=== PATIENT | female | born 1955 | race American Indian/Alaskan Native ===

== ENCOUNTER 2017-01-20 16:42 | Inpatient (IN) | payer MEDICARE ==
[2017-01-20 18:55] VITALS: BMI 27.3
--- NOTE | 2017-01-20 22:40 | CP.PCM.HP ---
History of Present Illness - History of Present Illness History of Present Illness: CC: rehab after seizure, increased spasticity HPI: This is a 61 y/o female with a history of b/l CVAs (2007, 2011) with both L and R sided residual deficits, seizure disorder, HTN, and DM (which appears to be untreated). She is here after she was admitted to [facility] [place] initially for code stroke. She apparently presented with what appears to be partial seizure involving the LUE, L facial droop, as well as acute worsening of her baseline "shaking" Her symptoms resolved with ativan and she was loaded with keppra. Her presentation, per neurology appears to have been deemed an episode of Quinn's Paralysis. Her symptoms eventually improved and she is transferred here for rehab. Patient has no c/c other than the twitching L>R she has MRI w/o contrast shows large R MCA and small L FP infarct, both NOT acute. EEG performed at [facility] was abnormal. ROS: 14 pt. ROS negative other than HPI MHx: CVAs as above, HTN, HLD, DM2 SHx: Rt lumpectomy Allergies: NKDA Medications: as per transfer list Family Hx: Reviewed, no relevant findings Social Hx: Lives at home, no tobacco, no EtOH Surrogate: Monse, daughter Present on Admission - Present on Admission Any Indicators Present on Admission: No Past Patient History - CARDIAC Hx Pacemaker: No - NEUROLOGICAL Hx Paralysis: No (L SIDED WEAKNESS R/T CVA) - HEMATOLOGICAL/ONCOLOGICAL Hx Blood Transfusions: No Hx Blood Transfusion Reaction: No - MUSCULOSKELETAL/RHEUMATOLOGICAL Hx Musculoskeletal Disorders: No - PSYCHIATRIC Hx Physical Abuse: No - SURGICAL HISTORY Hx Surgeries: Yes - ANESTHESIA Hx Anesthesia Reactions: No Hx Malignant Hyperthermia: No Meds Allergies/Adverse Reactions: Allergies Allergy/AdvReac Type Severity Reaction Status Date / Time No Known Allergies Allergy Verified 11/25/11 09:54 Physical Exam - Constitutional Appears: No Acute Distress - Head Exam Head Exam: ATRAUMATIC, NORMOCEPHALIC - Eye Exam Eye Exam: EOMI, Normal appearance - ENT Exam ENT Exam: Mucous Membranes Moist - Neck Exam Neck exam: Positive for: Full Rom - Respiratory Exam Respiratory Exam: Clear to Auscultation Bilateral, NORMAL BREATHING PATTERN - Cardiovascular Exam Cardiovascular Exam: REGULAR RHYTHM, +S1, +S2 - GI/Abdominal Exam GI & Abdominal Exam: Normal Bowel Sounds, Soft - Extremities Exam Extremities exam: Positive for: full ROM Additional comments: LUE and LLE with what appears to be weakness as well as spasticity Assessment & Plan (1) Seizure disorder Assessment and Plan: 61 y/o female with multiple medical conditions including prior CVA and seizure disorder who comes in for rehab. 1) Seizure disorder/spasticity/tremors -Neuro consult (Tyler) -PT/OT consult -Cont Keppra, Lamictal -Ativan PRN for tremors 2) CVA/HLD -Cont ASA, Plavix -Cont statin 3) DM2 -A1C -DM2 diet -SSI -May need to start chcf therapy, either PO or LA/SA regimen 4) DVT PPx -- SQ heparin Status: Acute (2) Weakness Status: Acute (3) HTN (hypertension) Status: Acute (4) HLD (hyperlipidemia) Status: Acute (5) DM2 (diabetes mellitus, type 2) Status: Acute (6) DVT prophylaxis Status: Acute
[2017-01-21] MEDS: Insulin Lispro (humaLOG) 100 Units/ml Inj SC SCH ×4 (06:52→21:00)
[2017-01-21 06:54] LABS: HEMATOCRIT 34.3 % (34.0-47.0); MEAN CELL VOLUME 91.4 fl (81.0-99.0); MEAN CORPUSCULAR HEMOGLOBIN 29.1 pg (27.0-31.0); MEAN CORPUSCULAR HGB CONC 31.8 g/dL (33.0-37.0); RED CELL DISTRIBUTION WIDTH 13.8 % (11.5-14.5)
[2017-01-21 07:04] LABS: BLOOD UREA NITROGEN 12 mg/dl (7-17); CALCIUM 9.3 mg/dL (8.4-10.2); CARBON DIOXIDE 28 mmol/L (22-30); CHLORIDE 105 mmol/L (98-107); GFR AFRICAN-AMERICAN > 60; GLUCOSE,RANDOM 83 mg/dL (65-105); POTASSIUM 4.5 MMOL/L (3.6-5.0); SODIUM 141 mmol/l (132-148)
--- NOTE | 2017-01-21 08:43 | PSY.TMCNF ---
Nursing - Vital Signs Vital Signs (Last 8 hours): Vital Signs 01/21/17 08:09 Pulse Rate 74 Blood Pressure 122/64 - Bladder Management Bladder Pattern: Normal - Bowel Management Bowel Pattern: Normal Case Management - Discharge Plan Discharge Plan: Home with significant other/family Rehabilitation Plan - Treatment Plan Treatment Plan: Physical Therapy, Occupational Therapy, Speech, Dietary, Patient /Family Education - Recommendation Recommendation: Physical Therapy, Occupational Therapy, Speech, Dietary, Patient /Family Education - Discharge Plan Discharge to: Home
[2017-01-21] MEDS ORDERED: LAMOTRIGINE 50 MG PO SCH (09:00)
[2017-01-21] MEDS ORDERED: Patient's Own Med (Levetiracetam [Keppra] 750 MG) PO SCH (09:00)
--- NOTE | 2017-01-21 09:59 | PCM.OPOC ---
Physiatry Overall Plan of Care - Overall Plan of Care Estimated Length of Stay in Weeks: 3 Rehab Impairment: Mobility, Gait, Balance, Coordination Etiologic Diagnosis: Other Rehab/Medical Prognosis: Fair - Anticipated Interventions Physical Therapy:: Yes Occupational Therapy:: Yes Speech Therapy:: Yes Recreational Therapy:: Yes - Therapy Goals Bed Mobility: Independent Ambulation: Independent Functional Positional Changes:: Independent - Functional Outcomes Functional Outcomes: fair - Discharge Plan Identification of Barriers to Discharge: Home Situation Discharge Destination: Home
--- NOTE | 2017-01-21 10:32 | CON ---
PHYSIATRY CONSULTATION HISTORY OF PRESENT ILLNESS: The patient is a friendly 61-year-old black female admitted for acute inpatient rehab program. The patient with a diagnosis of seizure disorder, ICD code of 03.9. Also, history of CVA with residual left-sided weakness, slurred speech, diabetes, hypertension, history of right lumpectomy. SOCIAL HISTORY: History of smoking 1 pack per day. No other acute complaints at present. MEDICATIONS: As per medical physician. Vitals are stable. Seizure precautions. Poor functional status. The patient lives with the family, 14 steps to enter. REVIEW OF SYSTEMS: The patient with generalized weakness, left-sided weakness. PHYSICAL EXAMINATION: VITAL SIGNS: Vitals are stable. NECK: Supple. CHEST: Symmetrical. HEART: Sounds S1 and S2. ABDOMEN: Abdomen area is benign. EXTREMITIES: No clubbing, cyanosis or edema. NEUROLOGICAL: The patient is alert, able to follow commands. Cranial nerves II through XII intact. Motor both upper and both lower extremities to a normal range of motion is functional. Muscle strength is good. Left upper and left lower extremity to a normal range of motion is functional. Muscle strength is fair. Sensations to pinprick, light touch intact. Deep tendon reflexes 2+ bilaterally. Other systems are negative. IMPRESSION: For the patient is seizure disorder, ICD code of 03.9, history of cerebrovascular accident, left-sided weakness, slurred speech, seizure disorder, hypertension, diabetes, right lumpectomy. Precautions: Seizure precautions. Estimated length of stay for this patient is 2 to 3 weeks and expected discharge plan is go back to the home with supportive services. Treatment goals for the patient to be independent bed mobility, independent to supervision functional positional changes, independent to supervision for simple transfers, supervision and contact guard to complex transfers, independent to supervision for ambulation with assistive devices, supervision to contact guard for elevations. Terry Britton MD
--- NOTE | 2017-01-21 12:03 | CP.PCM.PN ---
Subjective - Date & Time of Evaluation Date of Evaluation: 01/21/17 Time of Evaluation: 14:00 - Subjective Subjective: Patient seen and examined bedside. Complains of spasticity and pain to LUE .he, modynamically stable, afebrile With weakness to LUE Objective - Vital Signs/Intake and Output Vital Signs (last 24 hours): Temp Pulse Resp BP Pulse Ox 74 20 122/64 100 01/21/17 08:09 01/20/17 22:48 01/21/17 08:09 01/20/17 22:48 - Medications Medications: Current Medications Acetaminophen (Tylenol 325mg Tab) 650 mg PO Q6 PRN PRN Reason: Pain, Mild (1-3) Aspirin (Ecotrin) 81 mg PO DAILY [facility] Last Admin: 01/21/17 08:08 Dose: 81 mg Atorvastatin Calcium (Lipitor) 40 mg PO HS [facility] Last Admin: 01/20/17 23:02 Dose: 40 mg Clopidogrel Bisulfate (Plavix) 75 mg PO DAILY [facility] Last Admin: 01/21/17 08:08 Dose: 75 mg Heparin Sodium (Porcine) (Heparin) 5,000 units SC Q8 [facility] PRN Reason: Protocol Last Admin: 01/21/17 06:27 Dose: 5,000 units Insulin Human Lispro (Humalog) 0 units SC ACHS [facility] PRN Reason: Protocol Last Admin: 01/21/17 06:52 Dose: Not Given Lamotrigine (Lamictal) 50 mg PO BID [facility] Last Admin: 01/21/17 08:08 Dose: 50 mg Levetiracetam (Keppra) 750 mg PO BID [facility] Last Admin: 01/21/17 08:08 Dose: 750 mg Lisinopril (Zestril) 5 mg PO DAILY [facility] Last Admin: 01/21/17 08:09 Dose: 5 mg Lorazepam (Ativan) 1 mg PO Q6H PRN PRN Reason: prn shaking/anxiety Last Admin: 01/20/17 23:02 Dose: 1 mg - Labs Labs: 01/21/17 06:45 01/21/17 06:45 - Constitutional Appears: Non-toxic, No Acute Distress - Head Exam Head Exam: ATRAUMATIC - Eye Exam Eye Exam: EOMI, PERRL Pupil Exam: NORMAL ACCOMODATION - ENT Exam ENT Exam: Mucous Membranes Moist, Normal Exam - Neck Exam Neck Exam: Full ROM, Normal Inspection - Respiratory Exam Respiratory Exam: Clear to Ausculation Bilateral, NORMAL BREATHING PATTERN. absent: Rales, Rhonchi, Wheezes, Respiratory Distress - Cardiovascular Exam Cardiovascular Exam: REGULAR RHYTHM, RRR, +S1, +S2. absent: JVD - GI/Abdominal Exam GI & Abdominal Exam: Soft, Normal Bowel Sounds, Rebound. absent: Distended, Guarding, Tenderness - Rectal Exam Rectal Exam: Deferred - Extremities Exam Extremities Exam: Normal Capillary Refill, Normal Inspection. absent: Calf Tenderness, Pedal Edema - Back Exam Back Exam: NORMAL INSPECTION - Neurological Exam Neurological Exam: Alert, Awake, Oriented x3 Additional comments: left side weakness left side spasticity - Psychiatric Exam Psychiatric exam: Normal Affect - Skin Skin Exam: Dry, Intact, Normal Color, Warm Assessment and Plan - Assessment and Plan (Free Text) Assessment: 61 y/o female with multiple medical conditions including prior CVA and seizure disorder came in for rehab.With weakness and spasticity to left side of her body . 1. Unstable gait with prior CVA and left side weakness admitted to acute rehab physiatry consulted continue PT/OT 2. Seizure disorder/spasticity/tremors Neuro consult with Dr. Olmos continue PT/OT consult Cont Keppra, Lamictal Ativan PRN for tremors 3. CVA/HLD Cont ASA, Plavix Cont statin 4. Suspected DM2 HgbA1c 5.5 DM2 diet SSI no PO meds for now 5.Anemia most likely chronic no intervention for now 6.DVT PPx SQ heparin
--- NOTE | 2017-01-21 22:51 | CP.PCM.CON ---
History of Present Illness - History of Present Illness History of Present Illness: This is a 61 y/o female with a history of b/l CVAs (2007, 2011) with both L and R sided residual deficits, seizure disorder, HTN, and DM (which appears to be untreated). She is here after she was admitted to [facility] [place] initially for code stroke. She apparently presented with what appears to be partial seizure involving the LUE, L facial droop, as well as acute worsening of her baseline "shaking" Her symptoms resolved with ativan and she was loaded with keppra. Her presentation, per neurology appears to have been deemed an episode of Quinn's Paralysis. Her symptoms eventually improved and she is transferred here for rehab. Patient has no c/c other than the twitching L>R she has MRI w/o contrast shows large R MCA and small L FP infarct, both NOT acute. EEG performed at [facility] [place] was abnormal. ROS: 14 pt. ROS negative other than HPI MHx: CVAs as above, HTN, HLD, DM2 SHx: Rt lumpectomy Allergies: NKDA Medications: as per transfer list Family Hx: Reviewed, no relevant findings Social Hx: Lives at home, no tobacco, no EtOH Surrogate: Monse, daughter Present on Admission - Present on Admission Any Indicators Present on Admission: No Past Patient History - CARDIAC Hx Pacemaker: No - NEUROLOGICAL Hx Paralysis: No (L SIDED WEAKNESS R/T CVA) - HEMATOLOGICAL/ONCOLOGICAL Hx Blood Transfusions: No Hx Blood Transfusion Reaction: No - MUSCULOSKELETAL/RHEUMATOLOGICAL Hx Musculoskeletal Disorders: No - PSYCHIATRIC Hx Physical Abuse: No - SURGICAL HISTORY Hx Surgeries: Yes - ANESTHESIA Hx Anesthesia Reactions: No Hx Malignant Hyperthermia: No Meds Allergies/Adverse Reactions: Allergies Allergy/AdvReac Type Severity Reaction Status Date / Time No Known Allergies Allergy Verified 11/25/11 09:54 Physical Exam - Constitutional Appears: No Acute Distress - Head Exam Head Exam: ATRAUMATIC, NORMOCEPHALIC - Eye Exam Eye Exam: EOMI, Normal appearance - ENT Exam ENT Exam: Mucous Membranes Moist - Neck Exam Neck exam: Positive for: Full Rom - Respiratory Exam Respiratory Exam: Clear to Auscultation Bilateral, NORMAL BREATHING PATTERN - Cardiovascular Exam Cardiovascular Exam: REGULAR RHYTHM, +S1, +S2 - GI/Abdominal Exam GI & Abdominal Exam: Normal Bowel Sounds, Soft - Extremities Exam Extremities exam: Positive for: full ROM Additional comments: LUE and LLE with what appears to be weakness as well as spasticity Assessment & Plan (1) Seizure disorder Assessment and Plan: 61 y/o female with multiple medical conditions including prior CVA and seizure disorder who comes in for rehab. 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 Complains of spasticity and pain to LUE .hemo dynamically stable, afebrile With weakness to LUE (2) Weakness Status: Acute (3) HTN (hypertension) Status: Acute (4) HLD (hyperlipidemia) Status: Acute (5) DM2 (diabetes mellitus, type 2) Status: Acute (6) DVT prophylaxis Status: Acute Estimated Length of Stay in Weeks: 3 Rehab Impairment: Mobility, Gait, Balance, Coordination Etiologic Diagnosis: Other Rehab/Medical Prognosis: Fair Past Patient History - Past Medical History & Family History Past Medical History?: Yes - Past Social History Smoking Status: Heavy Smoker > 10 Cigarettes Daily - CARDIAC Hx Hypercholesterolemia: Yes Hx Hypertension: Yes - PULMONARY Hx Respiratory Disorders: No - NEUROLOGICAL HX Cerebrovascular Accident: Yes (2007 and 2011) - HEENT Hx HEENT Problems: No - RENAL Hx Chronic Kidney Disease: No - ENDOCRINE/METABOLIC Hx Diabetes Mellitus Type 2: Yes - HEMATOLOGICAL/ONCOLOGICAL Hx Blood Transfusions: No Hx Blood Transfusion Reaction: No - INTEGUMENTARY Hx Dermatological Problems: No - MUSCULOSKELETAL/RHEUMATOLOGICAL Hx Musculoskeletal Disorders: No - GASTROINTESTINAL Hx Gastrointestinal Disorders: No - GENITOURINARY/GYNECOLOGICAL Hx Genitourinary Disorders: No - PSYCHIATRIC Hx Physical Abuse: No - SURGICAL HISTORY Hx Surgeries: Yes Other/Comment: HX. Right Lumpectomy - ANESTHESIA Hx Anesthesia: No Hx Anesthesia Reactions: No Hx Malignant Hyperthermia: No Meds Allergies/Adverse Reactions: Allergies Allergy/AdvReac Type Severity Reaction Status Date / Time No Known Allergies Allergy Verified 01/21/17 01:15 - Medications Medications: Current Medications Acetaminophen (Tylenol 325mg Tab) 650 mg PO Q6 PRN PRN Reason: Pain, Mild (1-3) Last Admin: 11/22/17 16:30 Dose: 650 mg Aspirin (Ecotrin) 81 mg PO DAILY [facility] Last Admin: 01/21/17 08:08 Dose: 81 mg Atorvastatin Calcium (Lipitor) 40 mg PO HS [facility] Last Admin: 01/21/17 21:16 Dose: 40 mg Clopidogrel Bisulfate (Plavix) 75 mg PO DAILY [facility] Last Admin: 01/21/17 08:08 Dose: 75 mg Donepezil HCl (Aricept) 10 mg PO HS [facility] Last Admin: 01/21/17 21:16 Dose: 10 mg Heparin Sodium (Porcine) (Heparin) 5,000 units SC Q8 [facility] PRN Reason: Protocol Last Admin: 01/21/17 21:17 Dose: 5,000 units Insulin Human Lispro (Humalog) 0 units SC ACHS [facility] PRN Reason: Protocol Last Admin: 01/21/17 21:00 Dose: Not Given Lamotrigine (Lamictal) 50 mg PO BID [facility] Last Admin: 01/21/17 17:47 Dose: 50 mg Levetiracetam (Keppra) 750 mg PO BID [facility] Last Admin: 01/21/17 17:47 Dose: 750 mg Lisinopril (Zestril) 5 mg PO DAILY [facility] Last Admin: 01/21/17 08:09 Dose: 5 mg Lorazepam (Ativan) 1 mg PO Q6H PRN PRN Reason: prn shaking/anxiety Last Admin: 01/21/17 13:29 Dose: 1 mg Pantoprazole Sodium (Protonix Ec Tab) 40 mg PO DAILY [facility] Physical Exam - Neurological Exam Additional comments: Patient is lying down active cooperative with me and her nurse. Mental status: Awake alert, oriented X 3 Normal memory dysarthric and receiving therapy for her condition. Motor: Right side has a normal Tone, left side facial asymmetry with a paralysis of the left side of the face, Power is reduced on the Left side scoring 3 to 4 /5 Left hand contracted She looks developing a condition of Spastic hand with tremors of the fingers of left hand DTR 0/4 Toes down going. Cerebellar: Normal FNT on the Right side, abnormal FNT on the Left side Stature and gait: not tested, reported to walking with help. Results - Vital Signs Recent Vital Signs: Last Vital Signs Temp 97.9 F 01/21/17 19:48 Pulse 75 01/21/17 19:48 Resp 20 01/21/17 19:48 BP 123/76 01/21/17 19:48 Pulse Ox 96 01/21/17 19:48 - Labs Result Diagrams: 01/21/17 06:45 01/21/17 06:45 Labs: Laboratory Results - last 24 hr 01/21/17 01/21/17 01/21/17 06:31 06:45 06:45 WBC 7.0 RBC 3.75 L Hgb 10.9 L Hct 34.3 MCV 91.4 MCH 29.1 MCHC 31.8 L RDW 13.8 Plt Count 165 Sodium Potassium Chloride Carbon Dioxide Anion Gap BUN Creatinine Est GFR ( Amer) Est GFR (Non-Af Amer) POC Glucose (mg/dL) 82 Random Glucose Hemoglobin A1c 5.5 Calcium 01/21/17 01/21/17 01/21/17 06:45 11:41 16:02 WBC RBC Hgb Hct MCV MCH MCHC RDW Plt Count Sodium 141 Potassium 4.5 Chloride 105 Carbon Dioxide 28 Anion Gap 12 BUN 12 Creatinine 1.1 Est GFR ( Amer) > 60 Est GFR (Non-Af Amer) 51 POC Glucose (mg/dL) 98 96 Random Glucose 83 Hemoglobin A1c Calcium 9.3 01/21/17 20:43 WBC RBC Hgb Hct MCV MCH MCHC RDW Plt Count Sodium Potassium Chloride Carbon Dioxide Anion Gap BUN Creatinine Est GFR ( Amer) Est GFR (Non-Af Amer) POC Glucose (mg/dL) 131 H Random Glucose Hemoglobin A1c Calcium Assessment & Plan (1) DM2 (diabetes mellitus, type 2) Status: Acute (2) DVT prophylaxis Status: Acute (3) HLD (hyperlipidemia) Status: Acute (4) HTN (hypertension) Status: Acute (5) Seizure disorder Status: Acute (6) Weakness Assessment and Plan: Left Sided Weakness. Status: Acute (7) Dystonia Assessment and Plan: R/O Dystonia and tremors of the left hand due to Rigidity and spasm of the left hand, on and off, producing milking like movement. This might be related to her CVA, or due to seizures. Start Benztropine Status: Acute
[2017-01-22] MEDS ORDERED: Oxycodone/Acetaminophen 5/325 mg Tab PO STA (02:05)
[2017-01-22] MEDS: Insulin Lispro (humaLOG) 100 Units/ml Inj SC SCH ×4 (06:30→21:00)
[2017-01-22] MEDS: Pantoprazole 40 mg EC Tab PO SCH (09:08)
[2017-01-22 18:04] LABS: FOLATE 17.1 ng/mL
--- NOTE | 2017-01-22 22:40 | CP.PCM.PN ---
Subjective - Date & Time of Evaluation Date of Evaluation: 01/22/17 Time of Evaluation: 21:20 - Subjective Subjective: Right hand is dystonic after starting the Benztropine 0.5 mg Q 12hrs. Complains of mild Dystonia in the left hand on and off given Ativan PRN pain due to hand spasm. Low Vit D give Vit D replacement and Oscal Continue Rehab as it is helping her significantly. she is satisfied with her progress. Botox injections also may help her Dx Dystonia Objective - Vital Signs/Intake and Output Vital Signs (last 24 hours): Temp Pulse Resp BP Pulse Ox 97.2 F L 79 20 126/72 97 01/22/17 19:15 01/22/17 19:15 01/22/17 19:15 01/22/17 19:15 01/22/17 19:15 - Medications Medications: Current Medications Acetaminophen (Tylenol 325mg Tab) 650 mg PO Q6 PRN PRN Reason: Pain, Mild (1-3) Last Admin: 01/21/17 16:30 Dose: 650 mg Aspirin (Ecotrin) 81 mg PO DAILY [facility] Last Admin: 01/22/17 09:07 Dose: 81 mg Atorvastatin Calcium (Lipitor) 40 mg PO HS [facility] Last Admin: 01/22/17 21:30 Dose: 40 mg Benztropine Mesylate (Cogentin) 0.5 mg PO BID [facility] Last Admin: 01/22/17 17:15 Dose: 0.5 mg Clopidogrel Bisulfate (Plavix) 75 mg PO DAILY [facility] Last Admin: 01/22/17 09:07 Dose: 75 mg Donepezil HCl (Aricept) 10 mg PO HS [facility] Last Admin: 01/22/17 21:31 Dose: 10 mg Heparin Sodium (Porcine) (Heparin) 5,000 units SC Q8 [facility] PRN Reason: Protocol Last Admin: 01/22/17 21:31 Dose: 5,000 units Insulin Human Lispro (Humalog) 0 units SC ACHS [facility] PRN Reason: Protocol Last Admin: 01/22/17 21:00 Dose: Not Given Lamotrigine (Lamictal) 50 mg PO BID [facility] Last Admin: 01/22/17 17:15 Dose: 50 mg Levetiracetam (Keppra) 750 mg PO BID [facility] Last Admin: 01/22/17 17:16 Dose: 750 mg Lisinopril (Zestril) 5 mg PO DAILY [facility] Last Admin: 01/22/17 09:07 Dose: 5 mg Lorazepam (Ativan) 1 mg PO Q6H PRN PRN Reason: prn shaking/anxiety Last Admin: 01/22/17 20:10 Dose: 1 mg Pantoprazole Sodium (Protonix Ec Tab) 40 mg PO DAILY [facility] Last Admin: 01/22/17 09:08 Dose: 40 mg - Labs Labs: 01/21/17 06:45 01/21/17 06:45 Assessment and Plan (1) DM2 (diabetes mellitus, type 2) Status: Acute (2) DVT prophylaxis Status: Acute (3) HLD (hyperlipidemia) Status: Acute (4) HTN (hypertension) Status: Acute (5) Seizure disorder Status: Acute (6) Weakness Status: Acute (7) Dystonia Status: Acute
[2017-01-22] MEDS: Ergocalciferol 50,000 Intl Units Cap PO SCH (23:09)
[2017-01-23] MEDS: Insulin Lispro (humaLOG) 100 Units/ml Inj SC SCH ×4 (06:30→21:20)
[2017-01-23] MEDS: Pantoprazole 40 mg EC Tab PO SCH (08:18)
--- NOTE | 2017-01-23 09:53 | CP.PCM.PN ---
Subjective - Date & Time of Evaluation Date of Evaluation: 01/23/17 Time of Evaluation: 09:48 - Subjective Subjective: patient seen and examined at bedside for seizures and dystonia? Of right hand. She is doing well and participating with physical therapy and states she feels improvement.She is hemodynamically stable and in no acute distress. Blood pressure mildly low, will place holding parameters on medications. Objective - Vital Signs/Intake and Output Vital Signs (last 24 hours): Temp Pulse Resp BP Pulse Ox 98 F 68 20 90/60 L 98 01/23/17 08:29 01/23/17 08:29 01/23/17 08:29 01/23/17 08:29 01/23/17 08:29 Physical exam: Constitutional- cooperative, awake, alert. Head- NCAT, PERRL Eye- PERRL, normal accommodation ENT- normal exam, MMM. Neck- normal inspection, supple, no JVD Respiratory- CTAB, no wheezes rales rhonchi Cardiovascular- RRR, +S1, +S2 no MRG GI/Abdominal- normal bowel sounds, soft, no mass, no hsm Skin- warm, dry Extremities Exam- normal capillary refill, normal inspection, no tremors Neurological Exam- alert, stable gait Psych- normal mood, normal affect - Medications Medications: Current Medications Acetaminophen (Tylenol 325mg Tab) 650 mg PO Q6 PRN PRN Reason: Pain, Mild (1-3) Last Admin: 01/21/17 16:30 Dose: 650 mg Aspirin (Ecotrin) 81 mg PO DAILY [facility] Last Admin: 01/23/17 08:19 Dose: 81 mg Atorvastatin Calcium (Lipitor) 40 mg PO [facility] Last Admin: 01/22/17 21:30 Dose: 40 mg Benztropine Mesylate (Cogentin) 0.5 mg PO BID [facility] Last Admin: 01/22/17 17:15 Dose: 0.5 mg [facility] [place] Last Admin: 01/23/17 08:18 Dose: 500 mg Clopidogrel Bisulfate (Plavix) 75 mg PO DAILY [facility] Last Admin: 01/23/17 08:19 Dose: 75 mg Donepezil HCl (Aricept) 10 mg PO HS [facility] Last Admin: 01/22/17 21:31 Dose: 10 mg Ergocalciferol (Drisdol 50,000 Intl Units Cap) 1 cap PO Q7D [facility] Last Admin: 01/22/17 23:09 Dose: 1 cap Heparin Sodium (Porcine) (Heparin) 5,000 units SC Q8 [facility] PRN Reason: Protocol Last Admin: 01/23/17 06:14 Dose: 5,000 units Hydroxyzine HCl (Atarax) 10 mg PO HS PRN PRN Reason: insomnia / severe muscle spasm Insulin Human Lispro (Humalog) 0 units SC ACHS [facility] PRN Reason: Protocol Last Admin: 01/23/17 06:30 Dose: Not Given Lamotrigine (Lamictal) 50 mg PO BID [facility] Last Admin: 01/23/17 08:19 Dose: 50 mg Levetiracetam (Keppra) 750 mg PO BID [facility] Last Admin: 01/23/17 08:19 Dose: 750 mg Lisinopril (Zestril) 5 mg PO DAILY [facility] Last Admin: 01/23/17 08:26 Dose: Not Given Lorazepam (Ativan) 1 mg PO Q6H PRN PRN Reason: prn shaking/anxiety Last Admin: 01/22/17 20:10 Dose: 1 mg Pantoprazole Sodium (Protonix Ec Tab) 40 mg PO DAILY [facility] Last Admin: 01/23/17 08:18 Dose: 40 mg - Labs Labs: 01/21/17 06:45 01/21/17 06:45 Assessment and Plan - Assessment and Plan (Free Text) Plan: 61 y/o female with a history of b/l CVAs (2007, 2011) with both L and R sided residual deficits, seizure disorder, HTN, and DM (untreated). [place] [facility]. She apparently presented with what appears to be partial seizure involving the LUE, L facial droop, as well as acute worsening of her baseline "shaking" Her symptoms resolved with ativan and she was loaded with keppra. Her presentation, per neurology this was an episode of Quinn's Paralysis. Her symptoms eventually improved and she is transferred here for rehab. 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 Today on examination, patient had no tremors nor dystonia. We will continue current medications and monitor for symptoms. - continue PT/OT - Neuro Consult: Dr. Olmos - Physiatry Consult - Continue Keppra, Lamictal - Ativan PRN for tremors - cont Atarax per neuro - cont Aricept per neuro - cont Benztropine per neuro Hx CVA HLD - continue ASA, plavix, and statin DMII, uncontrolled/ hyperglycemia - HgbA1c 5.5 - mod carbohydrate heart healthy diet - SSI - no PO meds initiated this admission Anemia - likely chronic - stable Vitamin D deficiency - replete per neuro, cont Ergocalciferol GERD? - protonix 40 mg PO daily DVT ppx heparin
--- NOTE | 2017-01-23 22:28 | CP.PCM.PN ---
Subjective - Date & Time of Evaluation Date of Evaluation: 01/23/17 Time of Evaluation: 21:20 - Subjective Subjective: Patient has no seizures currently and her hand Dystonia has disappeared on Benztropine. Both hands are acting normally without dystonia. Doubt a diagnosis of Seizures. Objective - Vital Signs/Intake and Output Vital Signs (last 24 hours): Temp Pulse Resp BP Pulse Ox 98 F 68 20 100/70 98 01/23/17 08:29 01/23/17 10:11 01/23/17 08:29 01/23/17 10:11 01/23/17 10:11 - Medications Medications: Current Medications Acetaminophen (Tylenol 325mg Tab) 650 mg PO Q6 PRN PRN Reason: Pain scale 1-10. Aspirin (Ecotrin) 81 mg PO DAILY [facility] Last Admin: 01/23/17 08:19 Dose: 81 mg Atorvastatin Calcium (Lipitor) 40 mg PO HS [facility] Last Admin: 01/23/17 21:14 Dose: 40 mg Benztropine Mesylate (Cogentin) 0.5 mg PO BID [facility] Last Admin: 01/23/17 17:56 Dose: 0.5 mg Calcium Carbonate (Oscal) 500 mg PO BIDWM [facility] Last Admin: 01/23/17 18:00 Dose: 500 mg Clopidogrel Bisulfate (Plavix) 75 mg PO DAILY [facility] Last Admin: 01/23/17 08:19 Dose: 75 mg Donepezil HCl (Aricept) 10 mg PO HS [facility] Last Admin: 01/23/17 21:14 Dose: 10 mg Ergocalciferol (Drisdol 50,000 Intl Units Cap) 1 cap PO Q7D [facility] Last Admin: 01/22/17 23:09 Dose: 1 cap Heparin Sodium (Porcine) (Heparin) 5,000 units SC Q8 [facility] PRN Reason: Protocol Last Admin: 01/23/17 21:14 Dose: 5,000 units Hydroxyzine HCl (Atarax) 10 mg PO HS PRN PRN Reason: insomnia / severe muscle spasm Insulin Human Lispro (Humalog) 0 units SC ACHS [facility] PRN Reason: Protocol Last Admin: 01/23/17 21:20 Dose: Not Given Lamotrigine (Lamictal) 50 mg PO BID [facility] Last Admin: 01/23/17 18:00 Dose: 50 mg Levetiracetam (Keppra) 750 mg PO BID [facility] Last Admin: 01/23/17 18:00 Dose: 750 mg Lisinopril (Zestril) 5 mg PO DAILY [facility] Lorazepam (Ativan) 1 mg PO Q6H PRN PRN Reason: prn shaking/anxiety Last Admin: 01/22/17 20:10 Dose: 1 mg Pantoprazole Sodium (Protonix Ec Tab) 40 mg PO DAILY [facility] Last Admin: 01/23/17 08:18 Dose: 40 mg - Labs Labs: 01/21/17 06:45 01/21/17 06:45 Assessment and Plan (1) DM2 (diabetes mellitus, type 2) Status: Acute (2) DVT prophylaxis Status: Acute (3) HLD (hyperlipidemia) Status: Acute (4) HTN (hypertension) Status: Acute (5) Seizure disorder Status: Acute (6) Weakness Status: Acute (7) Dystonia Status: Acute
[2017-01-24] MEDS: Insulin Lispro (humaLOG) 100 Units/ml Inj SC SCH ×4 (06:35→21:00)
[2017-01-24] MEDS: Pantoprazole 40 mg EC Tab PO SCH (08:35)
--- NOTE | 2017-01-24 12:36 | CP.PCM.PN ---
Subjective - Date & Time of Evaluation Date of Evaluation: 01/23/17 Time of Evaluation: 18:30 - Subjective Subjective: no acute complaints at present Objective - Vital Signs/Intake and Output Vital Signs (last 24 hours): Temp Pulse Resp BP Pulse Ox 98.1 F 62 20 129/69 97 01/24/17 08:01 01/24/17 08:35 01/24/17 08:01 01/24/17 08:35 01/24/17 08:22 - Medications Medications: Current Medications Acetaminophen (Tylenol 325mg Tab) 650 mg PO Q6 PRN PRN Reason: Pain scale 1-10. Aspirin (Ecotrin) 81 mg PO DAILY [facility] Last Admin: 01/24/17 08:35 Dose: 81 mg Atorvastatin Calcium (Lipitor) 40 mg PO HS [facility] Last Admin: 01/23/17 21:14 Dose: 40 mg Benztropine Mesylate (Cogentin) 0.5 mg PO BID [facility] Last Admin: 01/23/17 17:56 Dose: 0.5 mg Calcium Carbonate (Oscal) 500 mg PO BIDWM [facility] Last Admin: 01/24/17 08:36 Dose: 500 mg Clopidogrel Bisulfate (Plavix) 75 mg PO DAILY [facility] Last Admin: 01/24/17 08:34 Dose: 75 mg Donepezil HCl (Aricept) 10 mg PO HS [facility] Last Admin: 01/23/17 21:14 Dose: 10 mg Ergocalciferol (Drisdol 50,000 Intl Units Cap) 1 cap PO Q7D [facility] Last Admin: 01/22/17 23:09 Dose: 1 cap Heparin Sodium (Porcine) (Heparin) 5,000 units SC Q8 [facility] PRN Reason: Protocol Last Admin: 01/24/17 06:34 Dose: 5,000 units Hydroxyzine HCl (Atarax) 10 mg PO HS PRN PRN Reason: insomnia / severe muscle spasm Insulin Human Lispro (Humalog) 0 units SC ACHS [facility] PRN Reason: Protocol Last Admin: 01/24/17 06:35 Dose: Not Given Lamotrigine (Lamictal) 50 mg PO BID [facility] Last Admin: 01/24/17 08:35 Dose: 50 mg Levetiracetam (Keppra) 750 mg PO BID [facility] Last Admin: 01/24/17 08:34 Dose: 750 mg Lisinopril (Zestril) 5 mg PO DAILY [facility] Last Admin: 01/24/17 08:35 Dose: 5 mg Lorazepam (Ativan) 1 mg PO Q6H PRN PRN Reason: prn shaking/anxiety Last Admin: 01/22/17 20:10 Dose: 1 mg Pantoprazole Sodium (Protonix Ec Tab) 40 mg PO DAILY [facility] Last Admin: 01/24/17 08:35 Dose: 40 mg - Labs Labs: 01/21/17 06:45 01/21/17 06:45 - Head Exam Head Exam: ATRAUMATIC, NORMAL INSPECTION, NORMOCEPHALIC - Eye Exam Eye Exam: EOMI, Normal appearance Pupil Exam: NORMAL ACCOMODATION, PERRL - ENT Exam ENT Exam: Mucous Membranes Moist, Normal Exam - Respiratory Exam Respiratory Exam: Clear to Ausculation Bilateral, NORMAL BREATHING PATTERN - Cardiovascular Exam Cardiovascular Exam: REGULAR RHYTHM - GI/Abdominal Exam GI & Abdominal Exam: Soft, Normal Bowel Sounds - Exam External exam: NORMAL EXTERNAL EXAM - Extremities Exam Extremities Exam: Full ROM, Normal Capillary Refill, Normal Inspection - Back Exam Back Exam: NORMAL INSPECTION - Neurological Exam Neurological Exam: Alert, Awake Neuro motor strength exam: Left Upper Extremity: 3, Right Upper Extremity: 3, Left Lower Extremity: 3, Right Lower Extremity: 3 - Psychiatric Exam Psychiatric exam: Normal Affect - Skin Skin Exam: Dry, Normal Color Assessment and Plan (1) DM2 (diabetes mellitus, type 2) Status: Acute (2) DVT prophylaxis Status: Acute (3) Dystonia Status: Acute (4) HLD (hyperlipidemia) Status: Acute (5) HTN (hypertension) Status: Acute (6) Weakness Status: Acute (7) Seizure disorder Assessment & Plan: plan for physical, occupational, rec therapy and speech therapy Monitor skin , bowels or seizure, continue acute rehab. Status: Acute
[2017-01-24 16:05] LABS: VITAMIN B6 3.1 ng/mL (2.1-21.7)
--- NOTE | 2017-01-24 20:19 | CP.PCM.PN ---
Subjective - Date & Time of Evaluation Date of Evaluation: 01/24/17 Time of Evaluation: 20:10 - Subjective Subjective: No Dystonia seen in the hands or fingers after Cogentin was started. Objective - Vital Signs/Intake and Output Vital Signs (last 24 hours): Temp Pulse Resp BP Pulse Ox 98.4 F 74 20 131/70 97 01/24/17 19:53 01/24/17 19:53 01/24/17 19:53 01/24/17 19:53 01/24/17 19:53 - Medications Medications: Current Medications Acetaminophen (Tylenol 325mg Tab) 650 mg PO Q6 PRN PRN Reason: Pain scale 1-10. Aspirin (Ecotrin) 81 mg PO DAILY [facility] Last Admin: 01/24/17 08:35 Dose: 81 mg Atorvastatin Calcium (Lipitor) 40 mg PO HS [facility] Last Admin: 01/23/17 21:14 Dose: 40 mg Benztropine Mesylate (Cogentin) 0.5 mg PO BID [facility] Last Admin: 01/24/17 16:49 Dose: 0.5 mg Calcium Carbonate (Oscal) 500 mg PO BIDWM [facility] Last Admin: 01/24/17 16:50 Dose: 500 mg Clopidogrel Bisulfate (Plavix) 75 mg PO DAILY [facility] Last Admin: 01/24/17 08:34 Dose: 75 mg Donepezil HCl (Aricept) 10 mg PO HS [facility] Last Admin: 01/23/17 21:14 Dose: 10 mg Ergocalciferol (Drisdol 50,000 Intl Units Cap) 1 cap PO Q7D [facility] Last Admin: 01/22/17 23:09 Dose: 1 cap Heparin Sodium (Porcine) (Heparin) 5,000 units SC Q8 [facility] PRN Reason: Protocol Last Admin: 01/24/17 13:26 Dose: 5,000 units Hydroxyzine HCl (Atarax) 10 mg PO HS PRN PRN Reason: insomnia / severe muscle spasm Insulin Human Lispro (Humalog) 0 units SC ACHS [facility] PRN Reason: Protocol Last Admin: 01/24/17 16:50 Dose: 2 units Lamotrigine (Lamictal) 50 mg PO BID [facility] Last Admin: 01/24/17 16:51 Dose: 50 mg Levetiracetam (Keppra) 750 mg PO BID [facility] Last Admin: 01/24/17 16:49 Dose: 750 mg Lisinopril (Zestril) 5 mg PO DAILY [facility] Last Admin: 01/24/17 08:35 Dose: 5 mg Lorazepam (Ativan) 1 mg PO Q6H PRN PRN Reason: prn shaking/anxiety Last Admin: 01/22/17 20:10 Dose: 1 mg Pantoprazole Sodium (Protonix Ec Tab) 40 mg PO DAILY [facility] Last Admin: 01/24/17 08:35 Dose: 40 mg - Labs Labs: 01/21/17 06:45 01/21/17 06:45 Assessment and Plan (1) DM2 (diabetes mellitus, type 2) Status: Acute (2) DVT prophylaxis Status: Acute (3) HLD (hyperlipidemia) Status: Acute (4) HTN (hypertension) Status: Acute (5) Seizure disorder Status: Acute (6) Weakness Status: Acute (7) Dystonia Status: Acute
[2017-01-25] MEDS: Insulin Lispro (humaLOG) 100 Units/ml Inj SC SCH ×4 (07:00→21:00)
[2017-01-25] MEDS: Pantoprazole 40 mg EC Tab PO SCH (09:09)
--- NOTE | 2017-01-25 23:47 | CP.PCM.PN ---
Subjective - Date & Time of Evaluation Date of Evaluation: 01/25/17 Time of Evaluation: 21:05 - Subjective Subjective: Patient is doing better, no spasm in her hands. Sleeping well. Hands dystonia is treated. No seizures. Objective - Vital Signs/Intake and Output Vital Signs (last 24 hours): Temp Pulse Resp BP Pulse Ox 98.4 F 72 20 120/62 98 01/25/17 20:04 01/25/17 20:04 01/25/17 20:04 01/25/17 20:04 01/25/17 20:04 - Medications Medications: Current Medications Acetaminophen (Tylenol 325mg Tab) 650 mg PO Q6 PRN PRN Reason: Pain scale 1-10. Aspirin (Ecotrin) 81 mg PO DAILY [facility] Last Admin: 01/25/17 09:10 Dose: 81 mg Atorvastatin Calcium (Lipitor) 40 mg PO HS [facility] Last Admin: 01/25/17 21:11 Dose: 40 mg Benztropine Mesylate (Cogentin) 0.5 mg PO BID [facility] Last Admin: 01/25/17 16:31 Dose: 0.5 mg Calcium Carbonate (Oscal) 500 mg PO BIDWM [facility] Last Admin: 01/25/17 16:31 Dose: 500 mg Clopidogrel Bisulfate (Plavix) 75 mg PO DAILY [facility] Last Admin: 01/25/17 09:09 Dose: 75 mg Donepezil HCl (Aricept) 10 mg PO HS [facility] Last Admin: 01/25/17 21:11 Dose: 10 mg Ergocalciferol (Drisdol 50,000 Intl Units Cap) 1 cap PO Q7D [facility] Last Admin: 01/22/17 23:09 Dose: 1 cap Heparin Sodium (Porcine) (Heparin) 5,000 units SC Q8 [facility] PRN Reason: Protocol Last Admin: 01/25/17 21:11 Dose: 5,000 units Hydroxyzine HCl (Atarax) 10 mg PO HS PRN PRN Reason: insomnia / severe muscle spasm Last Admin: 01/24/17 22:03 Dose: 10 mg Insulin Human Lispro (Humalog) 0 units SC ACHS [facility] PRN Reason: Protocol Last Admin: 01/25/17 21:00 Dose: Not Given Lamotrigine (Lamictal) 50 mg PO BID [facility] Last Admin: 01/25/17 16:31 Dose: 50 mg Levetiracetam (Keppra) 750 mg PO BID [facility] Last Admin: 01/25/17 16:30 Dose: 750 mg Lisinopril (Zestril) 5 mg PO DAILY [facility] Last Admin: 01/25/17 09:13 Dose: Not Given Lorazepam (Ativan) 1 mg PO Q6H PRN PRN Reason: prn shaking/anxiety Last Admin: 01/22/17 20:10 Dose: 1 mg Pantoprazole Sodium (Protonix Ec Tab) 40 mg PO DAILY [facility] Last Admin: 01/25/17 09:09 Dose: 40 mg - Labs Labs: 01/21/17 06:45 01/21/17 06:45 Assessment and Plan (1) DM2 (diabetes mellitus, type 2) Status: Acute (2) DVT prophylaxis Status: Acute (3) HLD (hyperlipidemia) Status: Acute (4) HTN (hypertension) Status: Acute (5) Seizure disorder Status: Acute (6) Weakness Status: Acute (7) Dystonia Status: Acute
[2017-01-26] MEDS: Insulin Lispro (humaLOG) 100 Units/ml Inj SC SCH ×4 (06:30→21:10)
[2017-01-26] MEDS: Pantoprazole 40 mg EC Tab PO SCH (08:21)
--- NOTE | 2017-01-26 12:16 | CP.PCM.PN ---
Subjective - Date & Time of Evaluation Date of Evaluation: 01/26/17 Time of Evaluation: 12:15 - Subjective Subjective: pt seen examined bedside for seizures. No longer has dystonia. Participating with PT well. HD stable no acute distress Objective - Vital Signs/Intake and Output Vital Signs (last 24 hours): Temp Pulse Resp BP Pulse Ox 97.2 F L 71 20 119/55 L 100 01/26/17 10:00 01/26/17 10:00 01/26/17 10:00 01/26/17 10:00 01/26/17 10:00 Intake and Output: Physical exam: Constitutional- cooperative, awake, alert. Head- NCAT, PERRL Eye- PERRL, normal accommodation ENT- normal exam, MMM. Neck- normal inspection, supple, no JVD Respiratory- CTAB, no wheezes rales rhonchi Cardiovascular- RRR, +S1, +S2 no MRG GI/Abdominal- normal bowel sounds, soft, no mass, no hsm Skin- warm, dry Extremities Exam- normal capillary refill, normal inspection Neurological Exam- alert, awake Psych- normal mood, normal affect - Medications Medications: Current Medications Acetaminophen (Tylenol 325mg Tab) 650 mg PO Q6 PRN PRN Reason: Pain scale 1-10. Aspirin (Ecotrin) 81 mg PO DAILY [facility] Last Admin: 01/26/17 08:22 Dose: 81 mg Atorvastatin Calcium (Lipitor) 40 mg PO HS [facility] Last Admin: 01/25/17 21:11 Dose: 40 mg Benztropine Mesylate (Cogentin) 0.5 mg PO BID [facility] Last Admin: 01/26/17 08:21 Dose: 0.5 mg Calcium Carbonate (Oscal) 500 mg PO BIDWM [facility] Last Admin: 01/26/17 08:20 Dose: 500 mg Clopidogrel Bisulfate (Plavix) 75 mg PO DAILY [facility] Last Admin: 01/26/17 08:21 Dose: 75 mg Donepezil HCl (Aricept) 10 mg PO HS [facility] Last Admin: 01/25/17 21:11 Dose: 10 mg Ergocalciferol (Drisdol 50,000 Intl Units Cap) 1 cap PO Q7D [facility] Last Admin: 01/22/17 23:09 Dose: 1 cap Heparin Sodium (Porcine) (Heparin) 5,000 units SC Q8 [facility] PRN Reason: Protocol Last Admin: 01/26/17 05:31 Dose: 5,000 units Hydroxyzine HCl (Atarax) 10 mg PO HS PRN PRN Reason: insomnia / severe muscle spasm Last Admin: 01/24/17 22:03 Dose: 10 mg Insulin Human Lispro (Humalog) 0 units SC ACHS [facility] PRN Reason: Protocol Last Admin: 01/26/17 12:04 Dose: Not Given Lamotrigine (Lamictal) 50 mg PO BID [facility] Last Admin: 01/26/17 08:21 Dose: 50 mg Levetiracetam (Keppra) 750 mg PO BID [facility] Last Admin: 01/26/17 08:22 Dose: 750 mg Lisinopril (Zestril) 5 mg PO DAILY [facility] Last Admin: 01/26/17 08:23 Dose: 5 mg Lorazepam (Ativan) 1 mg PO Q6H PRN PRN Reason: prn shaking/anxiety Last Admin: 01/22/17 20:10 Dose: 1 mg Pantoprazole Sodium (Protonix Ec Tab) 40 mg PO DAILY [facility] Last Admin: 01/26/17 08:21 Dose: 40 mg - Labs Labs: 01/21/17 06:45 01/21/17 06:45 Assessment and Plan - Assessment and Plan (Free Text) Plan: 61 y/o female with a history of b/l CVAs (2007, 2011) with both L and R sided residual deficits, seizure disorder, HTN, and DM (untreated). Patient was admitted to [facility] initially for code stroke. She apparently presented with what appears to be partial seizure involving the LUE, L facial droop, as well as acute worsening of her baseline "shaking" Her symptoms resolved with ativan and she was loaded with keppra. Her presentation, per neurology this was an episode of Quinn's Paralysis. Her symptoms eventually improved and she is transferred here for rehab. 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 RESOLVED. - continue PT/OT - Neuro Consult: Dr. Olmos - Physiatry Consult - Continue Keppra, Lamictal - Ativan PRN for tremors - cont Atarax per neuro - cont Aricept per neuro - cont Benztropine per neuro Hx CVA HLD - continue ASA, plavix, and statin DMII, uncontrolled/ hyperglycemia - HgbA1c 5.5 - mod carbohydrate heart healthy diet - SSI - no PO meds initiated this admission Anemia - likely chronic - stable Vitamin D deficiency - replete per neuro, cont Ergocalciferol GERD? - protonix 40 mg PO daily DVT ppx heparin
[2017-01-27] MEDS: Insulin Lispro (humaLOG) 100 Units/ml Inj SC SCH ×4 (06:41→21:07)
[2017-01-27] MEDS: Pantoprazole 40 mg EC Tab PO SCH (08:21)
--- NOTE | 2017-01-27 12:31 | CP.PCM.PN ---
Subjective - Date & Time of Evaluation Date of Evaluation: 01/27/17 Time of Evaluation: 11:00 - Subjective Subjective: no acute complaints at present Objective - Vital Signs/Intake and Output Vital Signs (last 24 hours): Temp Pulse Resp BP Pulse Ox 98.5 F 86 21 110/70 98 01/27/17 10:00 01/27/17 10:00 01/27/17 10:00 01/27/17 10:00 01/27/17 10:00 - Medications Medications: Current Medications Acetaminophen (Tylenol 325mg Tab) 650 mg PO Q6 PRN PRN Reason: Pain scale 1-10. Aspirin (Ecotrin) 81 mg PO DAILY [facility] Last Admin: 01/27/17 08:21 Dose: 81 mg Atorvastatin Calcium (Lipitor) 40 mg PO HS [facility] Last Admin: 01/26/17 21:02 Dose: 40 mg Benztropine Mesylate (Cogentin) 0.5 mg PO BID [facility] Last Admin: 01/26/17 16:40 Dose: 0.5 mg Calcium Carbonate (Oscal) 500 mg PO BIDWM [facility] Last Admin: 01/27/17 08:21 Dose: 500 mg Clopidogrel Bisulfate (Plavix) 75 mg PO DAILY [facility] Last Admin: 01/27/17 08:21 Dose: 75 mg Donepezil HCl (Aricept) 10 mg PO HS [facility] Last Admin: 01/26/17 21:02 Dose: 10 mg Ergocalciferol (Drisdol 50,000 Intl Units Cap) 1 cap PO Q7D [facility] Last Admin: 01/22/17 23:09 Dose: 1 cap Heparin Sodium (Porcine) (Heparin) 5,000 units SC Q8 [facility] PRN Reason: Protocol Last Admin: 01/27/17 06:13 Dose: 5,000 units Hydroxyzine HCl (Atarax) 10 mg PO HS PRN PRN Reason: insomnia / severe muscle spasm Last Admin: 01/24/17 22:03 Dose: 10 mg Insulin Human Lispro (Humalog) 0 units SC ACHS [facility] PRN Reason: Protocol Last Admin: 01/27/17 06:41 Dose: Not Given Lamotrigine (Lamictal) 50 mg PO BID [facility] Last Admin: 01/27/17 08:21 Dose: 50 mg Lamotrigine (Lamictal) 100 mg PO DAILY [facility] Levetiracetam (Keppra) 750 mg PO BID [facility] Last Admin: 01/27/17 08:20 Dose: 750 mg Levetiracetam (Keppra) 500 mg PO BID [facility] Lisinopril (Zestril) 5 mg PO DAILY [facility] Last Admin: 01/27/17 08:27 Dose: 5 mg Lorazepam (Ativan) 1 mg PO Q6H PRN PRN Reason: prn shaking/anxiety Last Admin: 01/22/17 20:10 Dose: 1 mg Pantoprazole Sodium (Protonix Ec Tab) 40 mg PO DAILY [facility] Last Admin: 01/27/17 08:21 Dose: 40 mg - Labs Labs: 01/21/17 06:45 01/21/17 06:45 - Head Exam Head Exam: ATRAUMATIC, NORMAL INSPECTION, NORMOCEPHALIC - Eye Exam Eye Exam: EOMI, Normal appearance, PERRL Pupil Exam: NORMAL ACCOMODATION - ENT Exam ENT Exam: Mucous Membranes Moist, Normal Exam - Neck Exam Neck Exam: Normal Inspection - Respiratory Exam Respiratory Exam: NORMAL BREATHING PATTERN - Cardiovascular Exam Cardiovascular Exam: REGULAR RHYTHM - GI/Abdominal Exam GI & Abdominal Exam: Soft, Normal Bowel Sounds - Rectal Exam Rectal Exam: NORMAL INSPECTION - Exam External exam: NORMAL EXTERNAL EXAM - Extremities Exam Extremities Exam: Full ROM, Normal Capillary Refill, Normal Inspection - Back Exam Back Exam: NORMAL INSPECTION - Neurological Exam Neurological Exam: Alert, Awake Neuro motor strength exam: Left Upper Extremity: 3, Right Upper Extremity: 3, Left Lower Extremity: 3, Right Lower Extremity: 3 - Psychiatric Exam Psychiatric exam: Normal Affect, Normal Mood - Skin Skin Exam: Intact Assessment and Plan (1) DM2 (diabetes mellitus, type 2) Status: Acute (2) DVT prophylaxis Status: Acute (3) Dystonia Status: Acute (4) HLD (hyperlipidemia) Status: Acute (5) HTN (hypertension) Status: Acute (6) Weakness Status: Acute (7) Seizure disorder Assessment & Plan: plan for physical, occupational, rec and speech therapy Status: Acute
--- NOTE | 2017-01-28 02:58 | CP.PCM.PN ---
Subjective - Date & Time of Evaluation Date of Evaluation: 01/27/17 Time of Evaluation: 20:25 - Subjective Subjective: No seizures, she is modified to 100 mg Q 12hrs Lamictal 500 mg Q 12 hrs Keppra Planning on keeping Lamictal up to 150 mg Q 12hrs after a week and D/C Keppra in order to be on Lamictal, as she requested lamictal only. Dystonia is resolved in both hands by Cogentin 0.5 mg Q 12hrs. She is doing better and is feeding herself after the hand Dystonia disappeared. Objective - Vital Signs/Intake and Output Vital Signs (last 24 hours): Temp Pulse Resp BP Pulse Ox 97.6 F 72 20 110/70 98 01/27/17 20:05 01/27/17 20:05 01/27/17 20:05 01/27/17 20:05 01/27/17 20:05 - Medications Medications: Current Medications Acetaminophen (Tylenol 325mg Tab) 650 mg PO Q6 PRN PRN Reason: Pain scale 1-10. Aspirin (Ecotrin) 81 mg PO DAILY [facility] Last Admin: 01/27/17 08:21 Dose: 81 mg Atorvastatin Calcium (Lipitor) 40 mg PO HS [facility] Last Admin: 01/27/17 21:01 Dose: 40 mg Benztropine Mesylate (Cogentin) 0.5 mg PO BID [facility] Last Admin: 01/27/17 22:07 Dose: 0.5 mg Calcium Carbonate (Oscal) 500 mg PO BIDWM [facility] Last Admin: 01/27/17 17:16 Dose: 500 mg Clopidogrel Bisulfate (Plavix) 75 mg PO DAILY [facility] Last Admin: 01/27/17 08:21 Dose: 75 mg Donepezil HCl (Aricept) 10 mg PO HS [facility] Last Admin: 01/27/17 21:01 Dose: 10 mg Ergocalciferol (Drisdol 50,000 Intl Units Cap) 1 cap PO Q7D [facility] Last Admin: 01/22/17 23:09 Dose: 1 cap Heparin Sodium (Porcine) (Heparin) 5,000 units SC Q8 [facility] PRN Reason: Protocol Last Admin: 01/27/17 21:01 Dose: 5,000 units Hydroxyzine HCl (Atarax) 10 mg PO HS PRN PRN Reason: insomnia / severe muscle spasm Last Admin: 01/24/17 22:03 Dose: 10 mg Insulin Human Lispro (Humalog) 0 units SC ACHS [facility] PRN Reason: Protocol Last Admin: 01/27/17 21:07 Dose: Not Given Lamotrigine (Lamictal) 100 mg PO DAILY [facility] Levetiracetam (Keppra) 500 mg PO BID [facility] Lisinopril (Zestril) 5 mg PO DAILY [facility] Last Admin: 01/27/17 08:27 Dose: 5 mg Lorazepam (Ativan) 1 mg PO Q6H PRN PRN Reason: prn shaking/anxiety Last Admin: 01/22/17 20:10 Dose: 1 mg Pantoprazole Sodium (Protonix Ec Tab) 40 mg PO DAILY [facility] Last Admin: 01/27/17 08:21 Dose: 40 mg - Labs Labs: 01/21/17 06:45 01/21/17 06:45 Assessment and Plan (1) DM2 (diabetes mellitus, type 2) Status: Acute (2) DVT prophylaxis Status: Acute (3) HLD (hyperlipidemia) Status: Acute (4) HTN (hypertension) Status: Acute (5) Seizure disorder Assessment & Plan: Controlled. Status: Acute (6) Weakness Status: Acute (7) Dystonia Assessment & Plan: Controlled By Cogentin Status: Acute
[2017-01-28] MEDS: Insulin Lispro (humaLOG) 100 Units/ml Inj SC SCH ×4 (06:41→21:45)
[2017-01-28] MEDS: Pantoprazole 40 mg EC Tab PO SCH (08:11)
--- NOTE | 2017-01-28 11:44 | CP.PCM.PN ---
Subjective - Date & Time of Evaluation Date of Evaluation: 01/28/17 Time of Evaluation: 11:42 - Subjective Subjective: patient seene xamined for seizures. no complaints, HD stable, NAD. participating in PT well. Objective - Vital Signs/Intake and Output Vital Signs (last 24 hours): Temp Pulse Resp BP Pulse Ox 97.2 F L 78 20 119/59 L 97 01/28/17 08:10 01/28/17 08:15 01/28/17 08:10 01/28/17 08:15 01/28/17 08:10 - Medications Medications: Current Medications Acetaminophen (Tylenol 325mg Tab) 650 mg PO Q6 PRN PRN Reason: Pain scale 1-10. Aspirin (Ecotrin) 81 mg PO DAILY [facility] Last Admin: 01/28/17 08:12 Dose: 81 mg Atorvastatin Calcium (Lipitor) 40 mg PO HS [facility] Last Admin: 01/27/17 21:01 Dose: 40 mg Benztropine Mesylate (Cogentin) 0.5 mg PO BID [facility] Last Admin: 01/28/17 08:12 Dose: 0.5 mg Calcium Carbonate (Oscal) 500 mg PO BIDWM [facility] Last Admin: 01/28/17 08:11 Dose: 500 mg Clopidogrel Bisulfate (Plavix) 75 mg PO DAILY [facility] Last Admin: 01/28/17 08:12 Dose: 75 mg Donepezil HCl (Aricept) 10 mg PO HS [facility] Last Admin: 01/27/17 21:01 Dose: 10 mg Ergocalciferol (Drisdol 50,000 Intl Units Cap) 1 cap PO Q7D [facility] Last Admin: 01/22/17 23:09 Dose: 1 cap Heparin Sodium (Porcine) (Heparin) 5,000 units SC Q8 [facility] PRN Reason: Protocol Last Admin: 01/28/17 05:55 Dose: 5,000 units Hydroxyzine HCl (Atarax) 10 mg PO HS PRN PRN Reason: insomnia / severe muscle spasm Last Admin: 01/24/17 22:03 Dose: 10 mg Insulin Human Lispro (Humalog) 0 units SC ACHS [facility] PRN Reason: Protocol Last Admin: 01/28/17 06:41 Dose: Not Given Lamotrigine (Lamictal) 100 mg PO DAILY [facility] Levetiracetam (Keppra) 500 mg PO BID [facility] Lisinopril (Zestril) 5 mg PO DAILY [facility] Last Admin: 01/28/17 08:15 Dose: 5 mg Lorazepam (Ativan) 1 mg PO Q6H PRN PRN Reason: prn shaking/anxiety Last Admin: 01/22/17 20:10 Dose: 1 mg Pantoprazole Sodium (Protonix Ec Tab) 40 mg PO DAILY [facility] Last Admin: 01/28/17 08:11 Dose: 40 mg - Labs Labs: 01/21/17 06:45 01/21/17 06:45 - Constitutional Appears: Non-toxic, No Acute Distress - Head Exam Head Exam: ATRAUMATIC, NORMOCEPHALIC - Eye Exam Eye Exam: EOMI, Normal appearance, PERRL Pupil Exam: NORMAL ACCOMODATION - ENT Exam ENT Exam: Mucous Membranes Moist, Normal Oropharynx - Neck Exam Neck Exam: Full ROM, Normal Inspection - Respiratory Exam Respiratory Exam: Clear to Ausculation Bilateral, NORMAL BREATHING PATTERN - Cardiovascular Exam Cardiovascular Exam: RRR, +S1, +S2 - GI/Abdominal Exam GI & Abdominal Exam: Soft, Normal Bowel Sounds. absent: Organomegaly - Extremities Exam Extremities Exam: Full ROM, Normal Capillary Refill, Normal Inspection - Back Exam Back Exam: absent: CVA tenderness (L), CVA tenderness (R) - Neurological Exam Neurological Exam: Alert, Awake - Psychiatric Exam Psychiatric exam: Normal Affect, Normal Mood - Skin Skin Exam: Dry, Warm Assessment and Plan - Assessment and Plan (Free Text) Plan: 61 y/o female with a history of b/l CVAs (2007, 2011) with both L and R sided residual deficits, seizure disorder, HTN, and DM (untreated). Patient was admitted to [facility] initially for code stroke. She apparently presented with what appears to be partial seizure involving the LUE, L facial droop, as well as acute worsening of her baseline "shaking" Her symptoms resolved with ativan and she was loaded with keppra. Her presentation, per neurology this was an episode of Quinn's Paralysis. Her symptoms eventually improved and she is transferred here for rehab. 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 RESOLVED. - continue PT/OT - Neuro Consult: Dr. Olmos - Physiatry Consult - Continue Keppra, Lamictal, eventual titration to lamictal only per neuro - Ativan PRN for tremors - cont Atarax per neuro - cont Aricept per neuro - cont Benztropine per neuro Hx CVA HLD - continue ASA, plavix, and statin DMII, uncontrolled/ hyperglycemia - HgbA1c 5.5 - mod carbohydrate heart healthy diet - SSI - no PO meds initiated this admission Anemia - likely chronic - stable Vitamin D deficiency - replete per neuro, cont Ergocalciferol GERD? - protonix 40 mg PO daily DVT ppx heparin
--- NOTE | 2017-01-28 12:05 | PSY.TMCNF ---
Nursing - Vital Signs Vital Signs (Last 8 hours): Vital Signs 01/28/17 01/28/17 08:10 08:15 Temperature 97.2 F L Pulse Rate 78 78 Respiratory 20 Rate Blood Pressure 111/68 119/59 L O2 Sat by Pulse 97 Oximetry Pain: 0 - Precautions: Precautions: Fall Prevention, Seizure - Medications/Other Issues Comment: Keppra 500mg starting 01/30 then D/C. Lamictal 100mg - Consults Comment: (neuro) - Toileting Toileting: Minimal Assistance - Bladder Management Bladder Pattern: Normal Voiding Method: Toilet Bladder Management: Minimal Assistance Frequency of Accidents: none - Bowel Management Bowel Pattern: Normal Bowel Management: Minimal Assistance Frequency of Accidents: none - Transfers Transfers: Minimal Assistance - ADL's ADL's: Minimal Assistance - Pain Management Comments: denies - Patient/Family Teaching Comments: safety, medications which was discussed & reinforced teachings - Goals/Time Frame Comments: safety & fall prevention. - Provider Provider: [facility] - Bed Mobility Bed Mobility: Supervision, Verbal Cues - Transfers Sit to Stand: Supervision - Ambulation Level of Assistance: Supervision, Verbal Cues Distance (ft.): 200 Assistive Devices: N/A - Stair Negotiation Stairs: Level of Assistance: Supervision, Verbal Cues Stairs: Assistive Devices: Left Handrail, Right Handrail - Standing Balance Static Stand: Supervision Dynamic Stand: Contact Guard Assist - Pain Pain (assessed during therapy session): 0 - Insight/Carryover Insight/Carryover: Good - Patient/Family Education Comment: -safety, therapy schedule, therapy goals, POC, use of call elder, compensatory strategies and fall prevention with ADLs and ADL transfers - Assessment/Plan Assessment: Recommend continued OT services 5-6x/week to maximize independence with ADLs, IADLs and functional transfers to return home. - Goals Timeframe: 1 week Goals: MOD I ADLs. MOD I ADL transfers. MOD I basic IADLs - Provider License Number: [id number] Occupational Therapy - Arousal/Attention/Orientation Patient Orientation: Person, Place, Time, Appropriate to Age, Appropriate to Situation - ADL/IADL Self Feeding: Modified Independent Grooming: Modified Independent Dressing-Upper Extremity: Supervision, Verbal Cues, Set-up Help Dressing-Lower Extremity: Supervision, Verbal Cues, Set-up Help - Sitting Balance Static Sitting: Independent without upper extremity support Dynamic Sitting: Reaches across midline, Reaches out of base of support, Reaches within base of support - Transfers Wheelchair to Bed Transfers: Supervision, Verbal Cues Toilet Transfers: Supervision, Verbal Cues - Wheelchair Management Level of Assistance: Not Applicable - Upper Extremity Status Right Upper Extremity Comment: ROM WFL, minimally impaired coordination, MMT grossly 4/5 Left Upper Extremity Comment: ROM WFL, minimally impaired coordination, MMT grossly 3+/5 - Pain Pain (assessed during therapy session): 0 - Insight/Carryover Insight/Carryover: Good - Patient/Family Education Comment: -safety, therapy schedule, therapy goals, POC, use of call elder, compensatory strategies and fall prevention with ADLs and ADL transfers - Assessment/Plan Assessment: Recommend continued OT services 5-6x/week to maximize independence with ADLs, IADLs and functional transfers to return home. - Goals Timeframe: 1 week Goals: MOD I ADLs. MOD I ADL transfers. MOD I basic IADLs - Provider Therapist: Makenzie Reyes License Number: [id number] Speech Therapy - Plan Assessment: Recommend continued OT services 5-6x/week to maximize independence with ADLs, IADLs and functional transfers to return home. Recreational Therapy - Participation Participation: Participates in Individual and/or Group Sessions, Monitors His/ Her Own Leisure Time - Attendance Attendance: Daily - Activities Leisure Activities: Television - Socialization Level of Socialization: Initiates/interacts freely with care givers and peer - Diversional Time Diversional Time: word searches, television - Assessment Assessment/Plan: Recommend continued OT services 5-6x/week to maximize independence with ADLs, IADLs and functional transfers to return home. - Provider Therapist: Ayesha Cardenas, BIOMEDICAL ENGINEERING TECHNICIAN #[id number] Nutrition - Current Diet Current Diet/ Supplement/ Feedings: Moderate consistent CHO heart healthy - Appetite Percent Meal Consumed: 75-100% - Comments Comments: safety, medications which was discussed & reinforced teachings - Assessment/Goals/Time Frame Assessment/Goals/Time Frame: Keppra 500mg starting 01/30 then D/C. Lamictal 100mg - Provider Provider: Rosangela Joyner RD Case Management - Psychosocial Assessment Support Systems: Monse Hernandez/[email or web address]/[id number] Psychological Interventions/Needs: Pt is alert and oriented x3, however still experiencing episodes of involuntary movements during therapy Discharge Concerns: Pt varies in functional level due to involuntary movements/ spasms Patient/Family Meeting: CM met with pt and rehab team Intervention/Goal/Outcome:: Plan: D/C date TBD Home with skilled homecare VS [facility] - DME to be determined - Discharge Plan Discharge Plan: Home with services, Subacute care - Provider Provider: HUGH Bernardo, [employer] License Number: [id number] Rehabilitation Plan - Treatment Plan Treatment Plan: Physical Therapy, Occupational Therapy, Dietary, Patient/Family Education - Recommendation Recommendation: Physical Therapy, Occupational Therapy, Dietary, Patient/Family Education - Discharge Plan Discharge to: Home (02/02)
--- NOTE | 2017-01-28 13:02 | CP.PCM.PN ---
Subjective - Date & Time of Evaluation Date of Evaluation: 01/28/17 Time of Evaluation: 10:00 - Subjective Subjective: no acute complaints, no seizure activity Objective - Vital Signs/Intake and Output Vital Signs (last 24 hours): Temp Pulse Resp BP Pulse Ox 97.2 F L 78 20 119/59 L 97 01/28/17 08:10 01/28/17 08:15 01/28/17 08:10 01/28/17 08:15 01/28/17 08:10 - Medications Medications: Current Medications Acetaminophen (Tylenol 325mg Tab) 650 mg PO Q6 PRN PRN Reason: Pain scale 1-10. Aspirin (Ecotrin) 81 mg PO DAILY [facility] Last Admin: 01/28/17 08:12 Dose: 81 mg Atorvastatin Calcium (Lipitor) 40 mg PO HS [facility] Last Admin: 01/27/17 21:01 Dose: 40 mg Benztropine Mesylate (Cogentin) 0.5 mg PO BID [facility] Last Admin: 01/28/17 08:12 Dose: 0.5 mg Calcium Carbonate (Oscal) 500 mg PO BIDWM [facility] Last Admin: 01/28/17 08:11 Dose: 500 mg Clopidogrel Bisulfate (Plavix) 75 mg PO DAILY [facility] Last Admin: 01/28/17 08:12 Dose: 75 mg Donepezil HCl (Aricept) 10 mg PO HS [facility] Last Admin: 01/27/17 21:01 Dose: 10 mg Ergocalciferol (Drisdol 50,000 Intl Units Cap) 1 cap PO Q7D [facility] Last Admin: 01/22/17 23:09 Dose: 1 cap Heparin Sodium (Porcine) (Heparin) 5,000 units SC Q8 [facility] PRN Reason: Protocol Last Admin: 01/28/17 05:55 Dose: 5,000 units Hydroxyzine HCl (Atarax) 10 mg PO HS PRN PRN Reason: insomnia / severe muscle spasm Last Admin: 01/24/17 22:03 Dose: 10 mg Insulin Human Lispro (Humalog) 0 units SC ACHS [facility] PRN Reason: Protocol Last Admin: 01/28/17 12:23 Dose: Not Given Lamotrigine (Lamictal) 100 mg PO DAILY [facility] Levetiracetam (Keppra) 500 mg PO BID [facility] Lisinopril (Zestril) 5 mg PO DAILY [facility] Last Admin: 01/28/17 08:15 Dose: 5 mg Lorazepam (Ativan) 1 mg PO Q6H PRN PRN Reason: prn shaking/anxiety Last Admin: 01/22/17 20:10 Dose: 1 mg Pantoprazole Sodium (Protonix Ec Tab) 40 mg PO DAILY [facility] Last Admin: 01/28/17 08:11 Dose: 40 mg - Labs Labs: 01/21/17 06:45 01/21/17 06:45 - Head Exam Head Exam: ATRAUMATIC, NORMAL INSPECTION, NORMOCEPHALIC - Eye Exam Eye Exam: EOMI, Normal appearance, PERRL Pupil Exam: NORMAL ACCOMODATION - ENT Exam ENT Exam: Mucous Membranes Moist, Normal Exam - Neck Exam Neck Exam: Normal Inspection - Respiratory Exam Respiratory Exam: NORMAL BREATHING PATTERN - Cardiovascular Exam Cardiovascular Exam: REGULAR RHYTHM - GI/Abdominal Exam GI & Abdominal Exam: Soft, Normal Bowel Sounds - Rectal Exam Rectal Exam: NORMAL INSPECTION - Exam External exam: NORMAL EXTERNAL EXAM - Extremities Exam Extremities Exam: Full ROM, Normal Capillary Refill, Normal Inspection - Back Exam Back Exam: NORMAL INSPECTION - Neurological Exam Neurological Exam: Alert, Awake Neuro motor strength exam: Left Upper Extremity: 3, Right Upper Extremity: 3, Left Lower Extremity: 3, Right Lower Extremity: 3 - Psychiatric Exam Psychiatric exam: Normal Affect, Normal Mood - Skin Skin Exam: Dry, Intact Assessment and Plan (1) DM2 (diabetes mellitus, type 2) Status: Acute (2) DVT prophylaxis Status: Acute (3) Dystonia Status: Acute (4) HLD (hyperlipidemia) Status: Acute (5) HTN (hypertension) Status: Acute (6) Weakness Status: Acute (7) Seizure disorder Assessment & Plan: plan for physical, occupationa, rec therapy status post team conference Dc for DCe 4 to write equipment Status: Acute
--- NOTE | 2017-01-28 21:46 | CP.PCM.PN ---
Subjective - Date & Time of Evaluation Date of Evaluation: 01/28/17 Time of Evaluation: 20:35 - Subjective Subjective: No Seizures. She is having Lamictal and will be withdrawn for Keppra. No Dystonia on Cogentin 0.5 mg Q 12hrs. Walking and active, fully awake alert oriented. Normal cognition, fluent coherent speech. Objective - Vital Signs/Intake and Output Vital Signs (last 24 hours): Temp Pulse Resp BP Pulse Ox 97.0 F L 76 20 112/66 97 01/28/17 20:15 01/28/17 20:15 01/28/17 20:15 01/28/17 20:15 01/28/17 20:15 - Medications Medications: Current Medications Acetaminophen (Tylenol 325mg Tab) 650 mg PO Q6 PRN PRN Reason: Pain scale 1-10. Aspirin (Ecotrin) 81 mg PO DAILY [facility] Last Admin: 01/28/17 08:12 Dose: 81 mg Atorvastatin Calcium (Lipitor) 40 mg PO HS [facility] Last Admin: 01/27/17 21:01 Dose: 40 mg Benztropine Mesylate (Cogentin) 0.5 mg PO BID [facility] Last Admin: 01/28/17 17:00 Dose: 0.5 mg Calcium Carbonate (Oscal) 500 mg PO BIDWM [facility] Last Admin: 01/28/17 17:01 Dose: 500 mg Clopidogrel Bisulfate (Plavix) 75 mg PO DAILY [facility] Last Admin: 01/28/17 08:12 Dose: 75 mg Donepezil HCl (Aricept) 10 mg PO HS [facility] Last Admin: 01/27/17 21:01 Dose: 10 mg Ergocalciferol (Drisdol 50,000 Intl Units Cap) 1 cap PO Q7D [facility] Last Admin: 01/22/17 23:09 Dose: 1 cap Heparin Sodium (Porcine) (Heparin) 5,000 units SC Q8 [facility] PRN Reason: Protocol Last Admin: 01/28/17 14:49 Dose: 5,000 units Hydroxyzine HCl (Atarax) 10 mg PO HS PRN PRN Reason: insomnia / severe muscle spasm Last Admin: 01/24/17 22:03 Dose: 10 mg Insulin Human Lispro (Humalog) 0 units SC ACHS [facility] PRN Reason: Protocol Last Admin: 01/28/17 17:00 Dose: Not Given Lamotrigine (Lamictal) 100 mg PO DAILY [facility] Levetiracetam (Keppra) 500 mg PO BID [facility] Lisinopril (Zestril) 5 mg PO DAILY [facility] Last Admin: 01/28/17 08:15 Dose: 5 mg Lorazepam (Ativan) 1 mg PO Q6H PRN PRN Reason: prn shaking/anxiety Last Admin: 01/22/17 20:10 Dose: 1 mg Pantoprazole Sodium (Protonix Ec Tab) 40 mg PO DAILY [facility] Last Admin: 01/28/17 08:11 Dose: 40 mg - Labs Labs: 01/21/17 06:45 01/21/17 06:45 Assessment and Plan (1) DM2 (diabetes mellitus, type 2) Status: Acute (2) DVT prophylaxis Status: Acute (3) HLD (hyperlipidemia) Status: Acute (4) HTN (hypertension) Status: Acute (5) Seizure disorder Status: Acute (6) Weakness Status: Acute (7) Dystonia Status: Acute
[2017-01-29] MEDS: Insulin Lispro (humaLOG) 100 Units/ml Inj SC SCH ×4 (06:45→21:10)
[2017-01-29] MEDS: Pantoprazole 40 mg EC Tab PO SCH (08:23)
--- NOTE | 2017-01-29 16:51 | CP.PCM.PN ---
Subjective - Date & Time of Evaluation Date of Evaluation: 01/29/17 Time of Evaluation: 16:50 - Subjective Subjective: Patient seen examined bedside for seizures. Participating in PT well, no chest pain, no dypsnea, no calf tenderness. No dystonia. HD stable, NAD. Objective - Vital Signs/Intake and Output Vital Signs (last 24 hours): Temp Pulse Resp BP Pulse Ox 97.9 F 77 20 113/71 96 01/29/17 08:22 01/29/17 08:23 01/29/17 08:22 01/29/17 08:23 01/29/17 08:22 - Medications Medications: Current Medications Acetaminophen (Tylenol 325mg Tab) 650 mg PO Q6 PRN PRN Reason: Pain scale 1-10. Aspirin (Ecotrin) 81 mg PO DAILY [facility] Last Admin: 01/29/17 08:21 Dose: 81 mg Atorvastatin Calcium (Lipitor) 40 mg PO HS [facility] Last Admin: 01/28/17 21:44 Dose: 40 mg Benztropine Mesylate (Cogentin) 0.5 mg PO BID [facility] Last Admin: 01/29/17 08:21 Dose: 0.5 mg Calcium Carbonate (Oscal) 500 mg PO BIDWM [facility] Last Admin: 01/29/17 08:22 Dose: 500 mg Clopidogrel Bisulfate (Plavix) 75 mg PO DAILY [facility] Last Admin: 01/29/17 08:22 Dose: 75 mg Donepezil HCl (Aricept) 10 mg PO HS [facility] Last Admin: 01/28/17 21:44 Dose: 10 mg Ergocalciferol (Drisdol 50,000 Intl Units Cap) 1 cap PO Q7D [facility] Last Admin: 01/22/17 23:09 Dose: 1 cap Heparin Sodium (Porcine) (Heparin) 5,000 units SC Q8 [facility] PRN Reason: Protocol Last Admin: 01/29/17 14:41 Dose: 5,000 units Hydroxyzine HCl (Atarax) 10 mg PO HS PRN PRN Reason: insomnia / severe muscle spasm Last Admin: 01/24/17 22:03 Dose: 10 mg Insulin Human Lispro (Humalog) 0 units SC ACHS [facility] PRN Reason: Protocol Last Admin: 01/29/17 12:20 Dose: 4 units Lamotrigine (Lamictal) 100 mg PO DAILY [facility] Lamotrigine (Lamictal) 50 mg PO BID [facility] Stop: 01/29/17 23:59 Last Admin: 01/29/17 08:22 Dose: 50 mg Levetiracetam (Keppra) 500 mg PO BID [facility] Levetiracetam (Keppra) 750 mg PO BID [facility] Stop: 01/29/17 21:30 Last Admin: 01/29/17 08:22 Dose: 750 mg Lisinopril (Zestril) 5 mg PO DAILY [facility] Last Admin: 01/29/17 08:23 Dose: 5 mg Lorazepam (Ativan) 1 mg PO Q6H PRN PRN Reason: prn shaking/anxiety Last Admin: 01/22/17 20:10 Dose: 1 mg Pantoprazole Sodium (Protonix Ec Tab) 40 mg PO DAILY [facility] Last Admin: 01/29/17 08:23 Dose: 40 mg - Labs Labs: 01/21/17 06:45 01/21/17 06:45 - Constitutional Appears: Non-toxic, No Acute Distress - Head Exam Head Exam: ATRAUMATIC, NORMOCEPHALIC - Eye Exam Eye Exam: EOMI, Normal appearance, PERRL Pupil Exam: NORMAL ACCOMODATION - ENT Exam ENT Exam: Mucous Membranes Moist, Normal Oropharynx - Neck Exam Neck Exam: Full ROM, Normal Inspection. absent: Lymphadenopathy - Respiratory Exam Respiratory Exam: Clear to Ausculation Bilateral, NORMAL BREATHING PATTERN - Cardiovascular Exam Cardiovascular Exam: REGULAR RHYTHM, +S1, +S2. absent: Murmur - GI/Abdominal Exam GI & Abdominal Exam: Soft, Normal Bowel Sounds. absent: Tenderness - Rectal Exam Rectal Exam: Deferred - Extremities Exam Extremities Exam: Full ROM, Normal Capillary Refill, Normal Inspection. absent : Joint Swelling, Pedal Edema - Back Exam Back Exam: NORMAL INSPECTION. absent: CVA tenderness (L), CVA tenderness (R) - Neurological Exam Neurological Exam: Alert, Awake - Psychiatric Exam Psychiatric exam: Normal Affect, Normal Mood - Skin Skin Exam: Dry, Intact, Normal Color, Warm Assessment and Plan - Assessment and Plan (Free Text) Plan: 61 y/o female with a history of b/l CVAs (2007, 2011) with both L and R sided residual deficits, seizure disorder, HTN, and DM (untreated). Patient was admitted to [facility] initially for code stroke. She apparently presented with what appears to be partial seizure involving the LUE, L facial droop, as well as acute worsening of her baseline "shaking" Her symptoms resolved with ativan and she was loaded with keppra. Her presentation, per neurology this was an episode of Quinn's Paralysis. Her symptoms eventually improved and she is transferred here for rehab. 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 RESOLVED. - continue PT/OT - Neuro Consult: Dr. Olmos - Physiatry Consult - Continue Keppra, Lamictal, eventual titration to lamictal only per neuro to 150 mg PO BID - Ativan PRN for tremors - cont Atarax per neuro - cont Aricept per neuro - cont Benztropine per neuro Hx CVA HLD - continue ASA, plavix, and statin DMII, uncontrolled/ hyperglycemia - HgbA1c 5.5 - mod carbohydrate heart healthy diet - SSI - no PO meds initiated this admission Anemia - likely chronic - stable Vitamin D deficiency - replete per neuro, cont Ergocalciferol GERD? - protonix 40 mg PO daily DVT ppx heparin
[2017-01-29] MEDS: Ergocalciferol 50,000 Intl Units Cap PO SCH (21:59)
--- NOTE | 2017-01-30 00:34 | CP.PCM.PN ---
Subjective - Date & Time of Evaluation Date of Evaluation: 01/29/17 Time of Evaluation: 20:50 - Subjective Subjective: No seizures, doing better, no dystonia in her hands. She is responding well to Rehab. Normal V.S. Objective - Vital Signs/Intake and Output Vital Signs (last 24 hours): Temp Pulse Resp BP Pulse Ox 97.9 F 77 20 109/60 99 01/29/17 20:00 01/29/17 20:00 01/29/17 20:00 01/29/17 20:00 01/29/17 20:00 - Medications Medications: Current Medications Acetaminophen (Tylenol 325mg Tab) 650 mg PO Q6 PRN PRN Reason: Pain scale 1-10. Aspirin (Ecotrin) 81 mg PO DAILY [facility] Last Admin: 01/29/17 08:21 Dose: 81 mg Atorvastatin Calcium (Lipitor) 40 mg PO HS [facility] Last Admin: 01/29/17 21:06 Dose: 40 mg Benztropine Mesylate (Cogentin) 0.5 mg PO BID [facility] Last Admin: 01/29/17 17:02 Dose: 0.5 mg Calcium Carbonate (Oscal) 500 mg PO BIDWM [facility] Last Admin: 01/29/17 17:04 Dose: 500 mg Clopidogrel Bisulfate (Plavix) 75 mg PO DAILY [facility] Last Admin: 01/29/17 08:22 Dose: 75 mg Donepezil HCl (Aricept) 10 mg PO HS [facility] Last Admin: 01/29/17 21:06 Dose: 10 mg Ergocalciferol (Drisdol 50,000 Intl Units Cap) 1 cap PO Q7D [facility] Last Admin: 01/29/17 21:59 Dose: 1 cap Heparin Sodium (Porcine) (Heparin) 5,000 units SC Q8 [facility] PRN Reason: Protocol Last Admin: 01/29/17 21:06 Dose: 5,000 units Hydroxyzine HCl (Atarax) 10 mg PO HS PRN PRN Reason: insomnia / severe muscle spasm Last Admin: 01/24/17 22:03 Dose: 10 mg Insulin Human Lispro (Humalog) 0 units SC ACHS [facility] PRN Reason: Protocol Last Admin: 01/29/17 21:10 Dose: Not Given Lamotrigine (Lamictal) 100 mg PO DAILY [facility] Levetiracetam (Keppra) 500 mg PO BID [facility] Lisinopril (Zestril) 5 mg PO DAILY [facility] Last Admin: 01/29/17 08:23 Dose: 5 mg Lorazepam (Ativan) 1 mg PO Q6H PRN PRN Reason: prn shaking/anxiety Last Admin: 01/22/17 20:10 Dose: 1 mg Pantoprazole Sodium (Protonix Ec Tab) 40 mg PO DAILY [facility] Last Admin: 01/29/17 08:23 Dose: 40 mg - Labs Labs: 01/21/17 06:45 01/21/17 06:45 Assessment and Plan (1) DM2 (diabetes mellitus, type 2) Status: Acute (2) DVT prophylaxis Status: Acute (3) HLD (hyperlipidemia) Status: Acute (4) HTN (hypertension) Status: Acute (5) Seizure disorder Status: Acute (6) Weakness Status: Acute (7) Dystonia Status: Acute
[2017-01-30] MEDS: Insulin Lispro (humaLOG) 100 Units/ml Inj SC SCH ×4 (06:40→21:21)
[2017-01-30] MEDS: Pantoprazole 40 mg EC Tab PO SCH (08:53)
--- NOTE | 2017-01-30 13:33 | CP.PCM.PN ---
Subjective - Date & Time of Evaluation Date of Evaluation: 01/30/17 Time of Evaluation: 11:00 - Subjective Subjective: no acute complaints of any pain Objective - Vital Signs/Intake and Output Vital Signs (last 24 hours): Temp Pulse Resp BP Pulse Ox 97.9 F 67 18 100/60 99 01/30/17 08:06 01/30/17 08:53 01/30/17 08:06 01/30/17 08:53 01/30/17 08:06 - Medications Medications: Current Medications Acetaminophen (Tylenol 325mg Tab) 650 mg PO Q6 PRN PRN Reason: Pain scale 1-10. Aspirin (Ecotrin) 81 mg PO DAILY [facility] Last Admin: 01/30/17 08:52 Dose: 81 mg Atorvastatin Calcium (Lipitor) 40 mg PO HS [facility] Last Admin: 01/29/17 21:06 Dose: 40 mg Benztropine Mesylate (Cogentin) 0.5 mg PO BID [facility] Last Admin: 01/30/17 08:52 Dose: 0.5 mg Calcium Carbonate (Oscal) 500 mg PO BIDWM [facility] Last Admin: 01/30/17 08:51 Dose: 500 mg Clopidogrel Bisulfate (Plavix) 75 mg PO DAILY [facility] Last Admin: 01/30/17 08:52 Dose: 75 mg Donepezil HCl (Aricept) 10 mg PO HS [facility] Last Admin: 01/29/17 21:06 Dose: 10 mg Ergocalciferol (Drisdol 50,000 Intl Units Cap) 1 cap PO Q7D [facility] Last Admin: 01/29/17 21:59 Dose: 1 cap Heparin Sodium (Porcine) (Heparin) 5,000 units SC Q8 [facility] PRN Reason: Protocol Last Admin: 01/30/17 05:35 Dose: 5,000 units Hydroxyzine HCl (Atarax) 10 mg PO HS PRN PRN Reason: insomnia / severe muscle spasm Last Admin: 01/24/17 22:03 Dose: 10 mg Insulin Human Lispro (Humalog) 0 units SC ACHS [facility] PRN Reason: Protocol Last Admin: 01/30/17 11:30 Dose: Not Given Lamotrigine (Lamictal) 100 mg PO DAILY [facility] Last Admin: 01/30/17 08:52 Dose: 100 mg Levetiracetam (Keppra) 500 mg PO BID [facility] Lisinopril (Zestril) 5 mg PO DAILY [facility] Last Admin: 01/30/17 08:53 Dose: Not Given Lorazepam (Ativan) 1 mg PO Q6H PRN PRN Reason: prn shaking/anxiety Last Admin: 01/22/17 20:10 Dose: 1 mg Pantoprazole Sodium (Protonix Ec Tab) 40 mg PO DAILY [facility] Last Admin: 01/30/17 08:53 Dose: 40 mg - Labs Labs: 01/21/17 06:45 01/21/17 06:45 - Head Exam Head Exam: ATRAUMATIC, NORMAL INSPECTION, NORMOCEPHALIC - Eye Exam Eye Exam: EOMI, Normal appearance, PERRL Pupil Exam: NORMAL ACCOMODATION, PERRL - ENT Exam ENT Exam: Mucous Membranes Moist, Normal Exam - Neck Exam Neck Exam: Full ROM, Normal Inspection - Respiratory Exam Respiratory Exam: NORMAL BREATHING PATTERN - Cardiovascular Exam Cardiovascular Exam: REGULAR RHYTHM - GI/Abdominal Exam GI & Abdominal Exam: Soft, Normal Bowel Sounds - Rectal Exam Rectal Exam: NORMAL INSPECTION - Exam External exam: NORMAL EXTERNAL EXAM - Extremities Exam Extremities Exam: Full ROM, Normal Capillary Refill - Back Exam Back Exam: NORMAL INSPECTION - Neurological Exam Neurological Exam: Alert, Awake Neuro motor strength exam: Left Upper Extremity: 3, Right Upper Extremity: 3, Left Lower Extremity: 3, Right Lower Extremity: 3 - Psychiatric Exam Psychiatric exam: Normal Affect, Normal Mood - Skin Skin Exam: Dry, Intact Assessment and Plan (1) DM2 (diabetes mellitus, type 2) Status: Acute (2) DVT prophylaxis Status: Acute (3) Dystonia Status: Acute (4) HLD (hyperlipidemia) Status: Acute (5) HTN (hypertension) Status: Acute (6) Weakness Status: Acute (7) Seizure disorder Assessment & Plan: plan for physical, occupational, rec therapy program Status: Acute
[2017-01-30] MEDS: levETIRAcetam 100 mg/ml (5ml) Oral Syringe PO SCH (17:03)
--- NOTE | 2017-01-31 00:08 | CP.PCM.PN ---
Subjective - Date & Time of Evaluation Date of Evaluation: 01/30/17 Time of Evaluation: 20:45 - Subjective Subjective: She is stable, no seizures and dystonia is controlled. Lamictal is upped to 100 mg Q 12 hrs. Keppra is down to 500 mg Q 12 hrs. She is responding to Rehab. Less anxiety. She requested to be off Keppra, we will stop Keppra once Lamictal is 150 mg Q 12hrs Objective - Vital Signs/Intake and Output Vital Signs (last 24 hours): Temp Pulse Resp BP Pulse Ox 98.0 F 72 20 110/64 99 01/30/17 19:50 01/30/17 19:50 01/30/17 19:50 01/30/17 19:50 01/30/17 19:50 - Medications Medications: Current Medications Acetaminophen (Tylenol 325mg Tab) 650 mg PO Q6 PRN PRN Reason: Pain scale 1-10. Aspirin (Ecotrin) 81 mg PO DAILY [facility] Last Admin: 01/30/17 08:52 Dose: 81 mg Atorvastatin Calcium (Lipitor) 40 mg PO HS [facility] Last Admin: 01/30/17 21:16 Dose: 40 mg Benztropine Mesylate (Cogentin) 0.5 mg PO BID [facility] Last Admin: 01/30/17 17:02 Dose: 0.5 mg Calcium Carbonate (Oscal) 500 mg PO BIDWM [facility] Last Admin: 01/30/17 17:01 Dose: 500 mg Clopidogrel Bisulfate (Plavix) 75 mg PO DAILY [facility] Last Admin: 01/30/17 08:52 Dose: 75 mg Donepezil HCl (Aricept) 10 mg PO HS [facility] Last Admin: 01/30/17 21:16 Dose: 10 mg Ergocalciferol (Drisdol 50,000 Intl Units Cap) 1 cap PO Q7D [facility] Last Admin: 01/29/17 21:59 Dose: 1 cap Heparin Sodium (Porcine) (Heparin) 5,000 units SC Q8 [facility] PRN Reason: Protocol Last Admin: 01/30/17 21:20 Dose: 5,000 units Hydroxyzine HCl (Atarax) 10 mg PO HS PRN PRN Reason: insomnia / severe muscle spasm Last Admin: 01/24/17 22:03 Dose: 10 mg Insulin Human Lispro (Humalog) 0 units SC ACHS [facility] PRN Reason: Protocol Last Admin: 01/30/17 21:21 Dose: Not Given Lamotrigine (Lamictal) 100 mg PO DAILY [facility] Last Admin: 01/30/17 08:52 Dose: 100 mg Levetiracetam (Keppra) 500 mg PO BID [facility] Last Admin: 01/30/17 17:03 Dose: 500 mg Lisinopril (Zestril) 5 mg PO DAILY [facility] Last Admin: 01/30/17 08:53 Dose: Not Given Lorazepam (Ativan) 1 mg PO Q6H PRN PRN Reason: prn shaking/anxiety Last Admin: 01/22/17 20:10 Dose: 1 mg Pantoprazole Sodium (Protonix Ec Tab) 40 mg PO DAILY [facility] Last Admin: 01/30/17 08:53 Dose: 40 mg - Labs Labs: 01/21/17 06:45 01/21/17 06:45 Assessment and Plan (1) DM2 (diabetes mellitus, type 2) Status: Acute (2) DVT prophylaxis Status: Acute (3) HLD (hyperlipidemia) Status: Acute (4) HTN (hypertension) Status: Acute (5) Seizure disorder Status: Acute (6) Weakness Status: Acute (7) Dystonia Status: Acute
[2017-01-31] MEDS: Insulin Lispro (humaLOG) 100 Units/ml Inj SC SCH ×4 (06:34→21:31)
[2017-01-31] MEDS: Pantoprazole 40 mg EC Tab PO SCH (08:44)
[2017-01-31] MEDS: levETIRAcetam 100 mg/ml (5ml) Oral Syringe PO SCH ×2 (08:46→16:29)
[2017-01-31 20:59] VITALS: RESP 20
[2017-02-01] MEDS: Insulin Lispro (humaLOG) 100 Units/ml Inj SC SCH ×4 (06:43→21:49)
[2017-02-01] MEDS: Pantoprazole 40 mg EC Tab PO SCH (08:50)
[2017-02-01] MEDS: levETIRAcetam 100 mg/ml (5ml) Oral Syringe PO SCH ×2 (08:50→17:31)
[2017-02-01 12:58] LABS: BASO % 0.4 % (0.0-2.0); EOS # 0.2 K/uL (0.0-0.7); EOS % 2.4 % (0.0-4.0); HEMATOCRIT 36.8 % (34.0-47.0); LYMPH # 1.3 K/uL (1.0-4.3); LYMPH % 13.7 % (20.0-40.0); MEAN CELL VOLUME 91.2 fl (81.0-99.0); MEAN CORPUSCULAR HEMOGLOBIN 29.7 pg (27.0-31.0); MEAN CORPUSCULAR HGB CONC 32.6 g/dL (33.0-37.0); MONO # 0.3 K/uL (0.0-0.8); MONO % 3.2 % (0.0-10.0); NEUT # 7.9 K/uL (1.8-7.0); NEUT % 80.3 % (50.0-75.0); RED CELL DISTRIBUTION WIDTH 13.8 % (11.5-14.5); WHITE BLOOD COUNT 9.8 K/uL (4.8-10.8)
[2017-02-01 13:18] LABS: BLOOD UREA NITROGEN 23 mg/dl (7-17); CALCIUM 9.5 mg/dL (8.4-10.2); CARBON DIOXIDE 26 mmol/L (22-30); CHLORIDE 101 mmol/L (98-107); GFR AFRICAN-AMERICAN > 60; GLUCOSE,RANDOM 203 mg/dL (65-105); MAGNESIUM 1.7 MG/DL (1.6-2.3); PHOSPHOROUS 3.8 mg/dl (2.5-4.5); POTASSIUM 4.6 MMOL/L (3.6-5.0); SODIUM 138 mmol/l (132-148)
--- NOTE | 2017-02-01 21:16 | CP.PCM.PN ---
Subjective - Date & Time of Evaluation Date of Evaluation: 02/01/17 Time of Evaluation: 20:00 - Subjective Subjective: There is no seizures, no Dystonia. Her dose of Keppra is down to 500 mg Q 12hrs, as she does't like Keppra, her Lamictal is up to 100 mg Q 12 hrs. Those changes took place on 01/30/2017. She felt today sensory changes to the Left side of the Body, including pain in the left Upper Extremity and Left Lower Extremity and generalized weakness and fatigue. This lasted for 1 hours before lunch. She doesn't remember having this feeling recently. She had a very light breakfast. She is back to her baseline after an hour of the event. Lab Work was seen and the possibilty of a new seizure is very low, as a seizure doesn't last for 1 hour and she did not have LOC or LOP. Her speech is normal, fluent, coherent. She is to be discharged in AM. Lamictal will be continued 100 mg Q 12 hrs until 01/30/2017 and will be increased up to 150 mg q 12 hrs on 02/06/2017 and up to 200 mg Q 12hrs on 02/13/2017 Keppra might be D/C on 02/13/2017 She is to be given Rectal Diastat 10 mg TID PRN Seizures after discharge. Objective - Vital Signs/Intake and Output Vital Signs (last 24 hours): Temp Pulse Resp BP Pulse Ox 98.2 F 80 20 110/67 99 02/01/17 20:00 02/01/17 20:00 02/01/17 20:00 02/01/17 20:00 02/01/17 20:00 - Medications Medications: Current Medications Acetaminophen (Tylenol 325mg Tab) 650 mg PO Q6 PRN PRN Reason: Pain scale 1-10. Aspirin (Ecotrin) 81 mg PO DAILY [facility] Last Admin: 02/01/17 08:49 Dose: 81 mg Atorvastatin Calcium (Lipitor) 40 mg PO HS [facility] Last Admin: 01/31/17 21:25 Dose: 40 mg Benztropine Mesylate (Cogentin) 0.5 mg PO BID [facility] Last Admin: 02/01/17 17:32 Dose: 0.5 mg [facility] Last Admin: 02/01/17 17:32 Dose: 500 mg Clopidogrel Bisulfate (Plavix) 75 mg PO DAILY [facility] Last Admin: 02/01/17 08:50 Dose: 75 mg Donepezil HCl (Aricept) 10 mg PO HS [facility] Last Admin: 01/31/17 21:25 Dose: 10 mg Ergocalciferol (Drisdol 50,000 Intl Units Cap) 1 cap PO Q7D [facility] Last Admin: 01/29/17 21:59 Dose: 1 cap Heparin Sodium (Porcine) (Heparin) 5,000 units SC Q8 [facility] PRN Reason: Protocol Last Admin: 02/01/17 14:10 Dose: 5,000 units Hydroxyzine HCl (Atarax) 10 mg PO HS PRN PRN Reason: insomnia / severe muscle spasm Last Admin: 01/24/17 22:03 Dose: 10 mg Insulin Human Lispro (Humalog) 0 units SC ACHS [facility] PRN Reason: Protocol Last Admin: 02/01/17 17:31 Dose: 2 units Lamotrigine (Lamictal) 100 mg PO DAILY [facility] Last Admin: 02/01/17 08:50 Dose: 100 mg Levetiracetam (Keppra) 500 mg PO BID [facility] Last Admin: 02/01/17 17:31 Dose: 500 mg Lisinopril (Zestril) 5 mg PO DAILY [facility] Last Admin: 02/01/17 08:51 Dose: Not Given Lorazepam (Ativan) 1 mg PO Q6H PRN PRN Reason: prn shaking/anxiety Last Admin: 01/22/17 20:10 Dose: 1 mg Pantoprazole Sodium (Protonix Ec Tab) 40 mg PO DAILY [facility] Last Admin: 02/01/17 08:50 Dose: 40 mg - Labs Labs: 02/01/17 12:30 02/01/17 12:30 Assessment and Plan (1) DM2 (diabetes mellitus, type 2) Status: Acute (2) DVT prophylaxis Status: Acute (3) HLD (hyperlipidemia) Status: Acute (4) HTN (hypertension) Status: Acute (5) Seizure disorder Status: Acute (6) Weakness Status: Acute (7) Dystonia Status: Acute
[2017-02-02] MEDS: Insulin Lispro (humaLOG) 100 Units/ml Inj SC SCH ×3 (06:48→15:35)
[2017-02-02 08:08] VITALS: BP 119/61; PULSE 81; TEMP 97; O2SAT 100
[2017-02-02] MEDS: Pantoprazole 40 mg EC Tab PO SCH (08:14)
[2017-02-02] MEDS: levETIRAcetam 100 mg/ml (5ml) Oral Syringe PO SCH ×2 (08:14→16:50)
--- NOTE | 2017-02-02 12:07 | CP.PCM.DIS ---
Provider - Provider Date of Admission: 01/20/17 21:26 Attending physician: Vinh Frank MD Primary care physician: Soto Howard MD Consults: 01/21/17 02:14 Pharmacist Consult As Ordered Comment: Physician Instructions: Reason For Exam: Patient on Heparin. 01/21/17 09:00 Case Management Referral Routine Comment: Physician Instructions: Reason For Exam: Reason for Referral: Discharge Planning Pastoral Care Referral Routine Comment: Physician Instructions: Reason For Exam: per patient request Dr. Olmos- neurology Physiatry consultation- Time Spent in preparation of Discharge (in minutes): 30 Hospital Course - Lab Results Lab Results: Most Recent Lab Values WBC 9.8 K/uL (4.8-10.8) 02/01/17 12:30 RBC 4.03 Mil/uL (3.80-5.20) 02/01/17 12:30 Hgb 12.0 g/dL (12.0-16.0) 02/01/17 12:30 Hct 36.8 % (34.0-47.0) 02/01/17 12:30 MCV 91.2 fl (81.0-99.0) 02/01/17 12:30 MCH 29.7 pg (27.0-31.0) 02/01/17 12:30 MCHC 32.6 g/dL (33.0-37.0) L 02/01/17 12:30 RDW 13.8 % (11.5-14.5) 02/01/17 12:30 Plt Count 162 K/uL (130-400) 02/01/17 12:30 MPV 11.0 fl (7.2-11.7) 02/01/17 12:30 Neut % (Auto) 80.3 % (50.0-75.0) H 02/01/17 12:30 Lymph % (Auto) 13.7 % (20.0-40.0) L 02/01/17 12:30 [place] % (Auto) 3.2 % (0.0-10.0) 02/01/17 12:30 Eos % (Auto) 2.4 % (0.0-4.0) 02/01/17 12:30 Baso % (Auto) 0.4 % (0.0-2.0) 02/01/17 12:30 Neut # 7.9 K/uL (1.8-7.0) H 02/01/17 12:30 Lymph # 1.3 K/uL (1.0-4.3) 02/01/17 12:30 [place] # 0.3 K/uL (0.0-0.8) 02/01/17 12:30 Eos # 0.2 K/uL (0.0-0.7) 02/01/17 12:30 Baso # 0.0 K/uL (0.0-0.2) 02/01/17 12:30 Sodium 138 mmol/l (132-148) 02/01/17 12:30 Potassium 4.6 MMOL/L (3.6-5.0) 02/01/17 12:30 Chloride 101 mmol/L (98-107) 02/01/17 12:30 Carbon Dioxide 26 mmol/L (22-30) 02/01/17 12:30 Anion Gap 16 (10-20) 02/01/17 12:30 BUN 23 mg/dl (7-17) H 02/01/17 12:30 Creatinine 0.9 mg/dl (0.7-1.2) 02/01/17 12:30 Est GFR ( Amer) > 60 02/01/17 12:30 Est GFR (Non-Af Amer) > 60 02/01/17 12:30 POC Glucose (mg/dL) 74 mg/dL (65-110) 02/02/17 11:21 Random Glucose 203 mg/dL (65-105) H 02/01/17 12:30 Hemoglobin A1c 5.5 % (4.2-6.5) 01/21/17 06:45 Calcium 9.5 mg/dL (8.4-10.2) 02/01/17 12:30 Phosphorus 3.8 mg/dl (2.5-4.5) 02/01/17 12:30 Magnesium 1.7 MG/DL (1.6-2.3) 02/01/17 12:30 Vitamin B1 10 nmol/L (8-30) 01/22/17 06:20 Vitamin B6 3.1 ng/mL (2.1-21.7) 01/22/17 06:20 Vitamin B12 602 pg/mL (239-931) 01/22/17 06:20 25-OH Vitamin D Total 19.5 NG/ML (30.0-100.0) L 01/22/17 06:20 Folate 17.1 ng/mL 01/22/17 06:20 - Hospital Course Hospital Course: This is a 61 year old female with a past medicalhistory of b/l CVAs (2007, 2011 ) with both L and R sided residual deficits, seizure disorder, HTN, and DM for which she takes Janumet at home. She came to rehab after being admitted to [facility] [place] for code stroke. She was found to have a partial seizure involving the left upper extremity, left facial droop, along with acute worsening of her baseline "shaking" and axiety. Her symptoms resolved with Ativan and she was loaded with Keppra. 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 Her symptoms improved at [facility] [place] and she was transferred here for rehabilitation. Here, her symptoms improved with PT/OT/ST. She was seen by Dr. Olmos for neurology, who is weaning her off of Keppra and onto Lamictal. Today, she has no complaints. She states that she feels well. She was discharged to home today in stable condition and is to follow up with Dr. Olmos on 02/06 for neurologic follow up. Quinn's Paralysis 2/2 Seizure, resolved with PT/OT Dystonia R hand post seizure - resolved Unstable Gait - pt has hx of prior CVA and L sided weakness - per staff, patient had tremors, Benztropine was initiated and sx improved, however neuro note reports possible dystonia of R hand. RESOLVED. - continue PT/OT - Neuro Consult: Dr. Olmos - Physiatry Consult - Scripts for Lamictal and Keppra given- patient to follow up with Dr. Olmos as outpatient for further titration up of Lamictal and titration down and weaning off of Keppra. - Ativan PO for tremors - cont Atarax per neuro - cont Aricept per neuro - cont Benztropine per neuro Hx CVA HLD - continue ASA, plavix, and statin as outpatient DMII, uncontrolled/ hyperglycemia - HgbA1c 5.5 - mod carbohydrate heart healthy diet - Patient takes Janumet at home- script given Anemia - likely chronic - stable Vitamin D deficiency - replete per neuro, cont Ergocalciferol Discharge Exam - Additional Findings Additional findings: Physical exam: Constitutional- cooperative, awake, alert. Head- NCAT, PERRL Eye- PERRL, normal accommodation ENT- normal exam, MMM. Neck- normal inspection, supple, no JVD Respiratory- CTAB, no wheezes rales rhonchi Cardiovascular- RRR, +S1, +S2 no MRG GI/Abdominal- normal bowel sounds, soft, no mass, no hsm Skin- warm, dry Extremities Exam- normal capillary refill, normal inspection Neurological Exam- alert, stable gait Psych- normal mood, normal affect Discharge Plan - Discharge Medications Prescriptions: Aspirin [Ecotrin] 81 mg PO DAILY #30 tabec Atorvastatin [Lipitor] 40 mg PO HS #30 tab Benztropine [Cogentin] 0.5 mg PO BID #60 tab Clopidogrel [Plavix] 75 mg PO DAILY #30 tab Donepezil HCl [Aricept] 10 mg PO HS #30 tablet hydrOXYzine HCl [Atarax] 10 mg PO HS PRN #20 tab PRN Reason: insomnia / severe muscle spasm lamoTRIgine [Lamictal] 100 mg PO BID #8 tab Lisinopril [Zestril] 5 mg PO DAILY #30 tab LORazepam [Ativan] 1 mg PO Q6H PRN #20 tab PRN Reason: Anxiety Sitagliptin Phos/Metformin HCl [Janumet 50-1,000 mg Tablet] 1 each PO BID 30 Days #60 tablet - Follow Up Plan Condition: GOOD Disposition: HOME/ ROUTINE Instructions: Epilepsy (DC), Hypertension (DC), Hypertension (GEN) Referrals: Soto Howard MD [Primary Care Provider] -
--- NOTE | 2017-02-03 01:09 | CP.PCM.PN ---
Subjective - Date & Time of Evaluation Date of Evaluation: 02/02/17 Time of Evaluation: 15:00 - Subjective Subjective: She had no seizures, was fully interactive, her daughter will take care of her. She was discharged safely after being cleared by Internal medicine, neurology and Rehab Dystonia is controlled by Benztropine ( Cogentin), seizures are controlled by lamictal 100 mg Q 12 hrs and Keppra 500 mg Q 12hrs. She is able to function on her own. Objective - Vital Signs/Intake and Output Vital Signs (last 24 hours): Temp Pulse Resp BP Pulse Ox 97.0 F L 81 20 119/61 100 02/02/17 08:08 02/02/17 08:14 02/02/17 08:08 02/02/17 08:14 02/02/17 08:08 - Labs Labs: 02/01/17 12:30 02/01/17 12:30 Assessment and Plan (1) DM2 (diabetes mellitus, type 2) Status: Acute (2) DVT prophylaxis Status: Acute (3) HLD (hyperlipidemia) Status: Acute (4) HTN (hypertension) Status: Acute (5) Seizure disorder Status: Acute (6) Weakness Status: Acute (7) Dystonia Status: Acute
== END 2017-02-02 17:35 | disposition home or self-care (01) | DRG 57 ==
PROVIDERS: ADMIT Internal Medicine; ATTEND Internal Medicine
PROC: F07Z9FZ Gait Training/Functional Ambulation Treatment using Assistive, Adaptive, Supportive or Protective Equipment (ICD-10-PCS; principal; 2017-01-20)
PROC: F08Z4FZ Home Management Treatment using Assistive, Adaptive, Supportive or Protective Equipment (ICD-10-PCS; 2017-01-20)
PROC: F07K6FZ Therapeutic Exercise Treatment of Musculoskeletal System - Upper Back / Upper Extremity using Assistive, Adaptive, Supportive or Protective Equipment (ICD-10-PCS; 2017-01-21)
DX: I69.398 Other sequelae of cerebral infarction (principal); G83.84 Todd's paralysis (postepileptic); E11.65 Type 2 diabetes mellitus with hyperglycemia; I69.354 Hemiplegia and hemiparesis following cerebral infarction affecting left non-dominant side; G40.89 Other seizures; G24.8 Other dystonia; I69.392 Facial weakness following cerebral infarction; E55.9 Vitamin D deficiency, unspecified; D64.9 Anemia, unspecified; I10 Essential (primary) hypertension; R26.81 Unsteadiness on feet; E78.5 Hyperlipidemia, unspecified; F41.9 Anxiety disorder, unspecified; F17.210 Nicotine dependence, cigarettes, uncomplicated